=== PATIENT | female | born 1940 | race Caucasian/White ===

== ENCOUNTER 2016-04-19 17:06 | Observation (INO) | payer MEDICARE ==
[2016-04-19] MEDS ORDERED: Lidocaine 2.5%/Prilocain 2.5%* 5 GM TUBE TOPICAL PRN (17:35)
[2016-04-19] MEDS ORDERED: Albuterol HFA INHALER* 8 gm MDI INH PRN (17:36)
[2016-04-19] MEDS ORDERED: Acetaminophen TAB* 325 MG PO PRN (17:36)
[2016-04-19] MEDS ORDERED: HYDROmorphone INJ* 1 MG/ML CARPUJECT SYRINGE IV PRN (17:38)
[2016-04-19] MEDS ORDERED: Ondansetron INJ* 2 MG/ML VIAL IV PRN (17:39)
[2016-04-19] MEDS ORDERED: LORazepam INJ* 2 MG/ML 1 ML VIAL IV PUSH PRN (17:39)
[2016-04-19] MEDS: NS 0.9% 1000 ML* 1,000 ML IV SCH (17:43)
[2016-04-19] MEDS ORDERED: Magnesium Sulf 4 GM/100 ML IV* 4,000 MG/100 ML BAG IVPB ONE (18:00)
[2016-04-19] MEDS: Mometasone/Formoter 200/5 MDI INH SCH (20:00)
[2016-04-19] MEDS: Dexamethasone IV* 4 MG/ML 1 ML (4 MG) IV SLOW PU SCH (22:02)
[2016-04-20] MEDS: NS 0.9% 1000 ML* 1,000 ML IV SCH (03:54)
[2016-04-20] MEDS: Dexamethasone IV* 4 MG/ML 1 ML (4 MG) IV SLOW PU SCH ×2 (04:08→10:01)
[2016-04-20 05:28] LABS: Hematocrit 32 % (35-47); Hemoglobin 10.7 g/dl (12.0-16.0); Mean Corpuscular HGB Conc 34 g/dl (31-36); Mean Corpuscular Hemoglobin 35 pg (27-31); Mean Corpuscular Volume 103 fL (80-97); Mean Platelet Volume 6 um3 (7.4-10.4); Red Blood Count 3.07 10^6/ul (4.0-5.4); Red Cell Distribution Width 13 % (10.5-15); White Blood Count 5.5 10^3/ul (3.5-10.8)
[2016-04-20 05:44] LABS: BUN/Creatinine Ratio 17.4 (8-20); Calcium 8.9 mg/dL (8.6-10.3); EGFR African American 82.5 (>60); EGFR Non-African American 64.2 (>60); Magnesium 2.5 mg/dL (1.9-2.7); Potassium 4.4 mmol/L (3.5-5.0)
[2016-04-20] MEDS ORDERED: Omeprazole CAP* 20 MG PO SCH (09:00)
[2016-04-20] MEDS: Mometasone/Formoter 200/5 MDI INH SCH (09:05)
--- NOTE | 2016-04-20 11:09 | PN ---
Progress Note - Progress Note SOAP: DISCHARGE NOTE, 24 HR OBV Subjective: []Much better after steroids. BENNETT gone and nausea gone. Walking better but still not very steady. Had presented with 2 weeks BENNETT, nausea, ataxia. Acetaminophen (Tylenol Tab*) 650 mg PO Q6H PRN PRN Reason: PAIN OR TEMPERATURE Albuterol (Ventolin Hfa Inhaler*) 2 puff INH Q6H PRN PRN Reason: WHEEZING Dexamethasone Sodium Phosphate (Decadron Iv*) 4 mg IV SLOW PU Q6H [facility] Last Admin: 04/20/16 10:01 Dose: 4 mg Hydromorphone HCl (Dilaudid Iv*) 0.5 mg IV Q6H PRN PRN Reason: PAIN Last Admin: 04/19/16 20:12 Dose: 0.5 mg Sodium Chloride (Ns 0.9% 1000 Ml*) 1,000 mls @ 100 mls/hr IV PER RATE [facility] Last Admin: 04/20/16 03:54 Dose: 100 mls/hr Lidocaine/Prilocaine (Emla 5 Gm*) 1 applic TOPICAL .SEE DIRECTIONS PRN PRN Reason: PORT ACCESS Lorazepam (Ativan Inj*) 0.5 mg IV PUSH Q6H PRN PRN Reason: NAUSEA/VOMITING Mometasone Furoate/Formoterol Fumar (Dulera 200/5 Mdi*) 2 puff INH BID [facility] Last Admin: 04/20/16 09:05 Dose: 2 puff Omeprazole (Prilosec Cap*) 20 mg PO DAILY [facility] Last Admin: 04/20/16 08:05 Dose: 20 mg Ondansetron HCl (Zofran Inj*) 4 mg IV Q6H PRN PRN Reason: NAUSEA/VOMITING Last Admin: 04/19/16 20:21 Dose: 4 mg Acetaminophen TAB* [Tylenol TAB*] 650 mg PO Q6H PRN 04/19/16 [History Confirmed 04/19/16] Albuterol HFA INHALER* [Ventolin HFA Inhaler*] 2 puff INH Q6H PRN 04/19/16 [ History Confirmed 04/19/16] Budesonide/Formote 160/4.5(NF) [Symbicort 160/4.5 (NF)] 2 puff INH DAILY [History Confirmed 04/19/16] Lidocaine 2.5%/Prilocain 2.5%* [Emla 5 GM*] 1 applic TOPICAL .SEE DIRECTIONS PRN 04/19/16 [History Confirmed 04/19/16] Objective: [] Vital Signs Temp Pulse Resp BP Pulse Ox 98.2 F 78 14 150/55 100 04/20/16 07:40 04/20/16 09:06 04/20/16 09:06 04/20/16 07:40 04/20/16 09:06 HEENT - Mucosa moist, lost teeth, no thrush. CTA RRR S1S2 ABD NT ND +BS NO HSM EXT no c/c/e Neuro - AAOx3, normal strength and rapid movement. Gait unstable, ataxia one assist. 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 Discussed that this is a risk after local therapy for AUDIO/VISUAL OPERATOR disease. Options include WBR, she may be a candidate for repeat focal therapy. Discussed pros and cons of both. She feels better today an can go home. Plan: []1. D/C on 8 mg po Dex bid 2. Will present at tumor board, follow up on Monday 3. Continue inhalers.
--- NOTE | 2016-04-20 11:42 | DS ---
DISCHARGE SUMMARY: DATE OF ADMISSION: 04/19/16 at 5 p.m. DATE OF DISCHARGE: 04/20/16 at 11 a.m. ADDENDUM: Please see history and physical for details of presentation. She was here less than 24 hours. She received IV fluids and steroids. Her headache , nausea, and gait have improved dramatically. She will now be discharged to home on oral dexamethasone. She will have a PT evaluation before going home for a walker. Follow up in clinic in 2 days. [id number]/[facility] #: [id number] [place]
[2016-04-20 13:28] VITALS: BP 125/49
== END 2016-04-20 14:20 | disposition home or self-care (01) ==
LOC: MED 17:24
PROVIDERS: ADMIT Internal Medicine Hematology & Oncology; ATTEND Internal Medicine Hematology & Oncology
DX: C34.91 Malignant neoplasm of unspecified part of right bronchus or lung (principal); C79.31 Secondary malignant neoplasm of brain; R51 Headache; R11.2 Nausea with vomiting, unspecified; G62.0 Drug-induced polyneuropathy; J44.9 Chronic obstructive pulmonary disease, unspecified; E78.5 Hyperlipidemia, unspecified; I10 Essential (primary) hypertension; Z88.1 Allergy status to other antibiotic agents; Z88.8 Allergy status to other drugs, medicaments and biological substances; Z79.899 Other long term (current) drug therapy; G91.9 Hydrocephalus, unspecified
CPT/HCPCS: 36415; 36591; 70470; 80048; 80053; 83735; 85025; 85027; 94640; 94760; 96361; 96365; 96366; 96372; 96375; 99215; 99217; 99219; 99225; A9270-GY; G0378; G0463; G8978-GP-CK; G8979-GP-CI; G8980-GP-CK; J1100; J1170; J1642; J2405; J3475; Q9967

== ENCOUNTER 2016-04-26 07:15 | Inpatient (IN) | payer MEDICARE ==
--- NOTE | 2016-04-25 13:22 | HP ---
HISTORY AND PHYSICAL: DATE OF ADMISSION: 04/26/16 CHIEF COMPLAINT: Recurrent cerebellar metastatic tumor. HISTORY OF PRESENT ILLNESS: This 76-year-old lady was initially diagnosed with lung cancer approximately 1 year prior to admission. She had undergone a posterior fossa craniectomy for removal of a mass, which turned out to be a nonsmall cell lung cancer back on 04/07/15. Postoperatively, she did quite well and has been followed by Dr. Tha Kang and postoperatively received radiotherapy as well as chemotherapy. Her underlying primary disease has been stable and she presented several weeks ago with recurrent ataxia as well as headaches. She has a history of a prior aneurysm clipping and so her radiographic evaluation was a CT scan with and without contrast, which suggested enhancing tissue adjacent to her former tumor bed in the right cerebellum. The differential diagnosis at this time is that of either radiation necrosis or possibly recurrent tumor. The patient was placed on steroids and symptomatically is somewhat better. She does have some difficulty ambulating and uses a walker for assistance. She also is using home oxygen for supplementation given her history of both lung cancer and chronic obstructive pulmonary disease. She denies any nausea or vomiting and has no previous history of seizures or other neurological complaints at this time. PAST MEDICAL HISTORY: Significant for: 1. Nonsmall cell lung cancer. 2. Coronary artery disease. 3. Chronic obstructive pulmonary disease. 4. Hypertension. 5. Hyperlipidemia. 6. Cerebral aneurysm with history of clipping on the left. 7. History of melanoma. PAST SURGICAL HISTORY: Includes posterior fossa craniectomy on the right, hysterectomy, and a prior left craniotomy for aneurysm clipping. MEDICATIONS: At the time of admission includes: 1. Symbicort 2 puffs every morning. 2. Albuterol inhaler 2 puffs every 4 hours as needed. 3. Decadron 4 mg p.o. q.6 hours. ALLERGIES: She is allergic to CIPRO, FLEXERIL, DEMEROL, and BENZONATATE. FAMILY HISTORY: Family history was taken and did not contribute to this illness. SOCIAL HISTORY: Reveals that she lives at home with a supportive family. She has a long smoking 50-pack year history, stopping around 9 years ago. REVIEW OF SYSTEMS: A complete 14-system review was done with the only significance being respiratory review consistent with her history of chronic obstructive pulmonary disease and lung cancer. The remainder of her system review was done and did not contribute to this illness. PHYSICAL EXAMINATION VITAL SIGNS: She was noted to have a blood pressure of 172/80 with a pulse of 72 and respirations of 16. HEENT: Head: She was noted to have alopecia with craniotomy defects on the left side as well as the right posterior fossa. Eyes revealed a full range of extraocular movements. Pupils are equal and reactive to light. NECK: Supple. LUNGS: Clear to auscultation. Lungs revealed distal breath sounds. CARDIOVASCULAR: Exam revealed regular rate and rhythm. ABDOMEN: Soft with normal bowel sounds, no tenderness. EXTREMITIES: Revealed full range of passive motion. NEUROLOGIC: Revealed her to be awake, alert, and oriented. Motor examination revealed 5/5 strength in all extremities. Sensory exam was intact to pinprick and light touch. Cerebellar examination revealed fairly good [id number] movements bilaterally. Her gait was somewhat unsteady. Cranial nerves II through XII were intact. IMAGING: A CT scan shows enhancing tissue in the right cerebellar hemisphere consistent with either radiation necrosis or recurrent tumor. IMPRESSION: Probable recurrent metastatic tumor. PLAN: She is being admitted at this time for elective craniotomy. [id number]/[facility] #: [id number] MTDD
[~2016-04-26 07:15] MED LIST: Buffered Lidocaine 1% SYR 3ML* 3 ML/SYR SYRINGE INTRADERM ONE; Famotidine IV* 10 MG/ML 2 ML (20 mg) IV ONE; Levalbuterol 0.63MG/3ML NEB INH ONE; Metoclopramide TAB* 10 MG PO ONE
[2016-04-26] MEDS ORDERED: Metoclopramide TAB* 10 MG ONE (07:40)
[2016-04-26] MEDS ORDERED: Famotidine IV* 10 MG/ML 2 ML (20 mg) ONE (07:41)
[2016-04-26] MEDS ORDERED: ceFAZolin 2 GM PREMIX (*) 2 GM/50 ML BAG IVPB ONE (07:41)
[2016-04-26] MEDS ORDERED: Buffered Lidocaine 1% SYR 3ML* 3 ML/SYR SYRINGE ONE (07:41)
[2016-04-26] MEDS ORDERED: Levalbuterol 1.25MG/0.5ML NEB ONE (07:41)
[2016-04-26] MEDS ORDERED: Sodium Chloride * 10 ML ONE (08:38)
[2016-04-26] MEDS ORDERED: EPHEDrine (Pressors)* 50 MG/ML VIAL ONE (08:38)
[2016-04-26] MEDS ORDERED: fentaNYL* 50 MCG/ML 2 ML VIAL (100 MCG VIAL) ONE ×2 (08:38→13:12)
[2016-04-26] MEDS ORDERED: Propofol* 500 MG/50 ML BTL ONE ×2 (08:38→12:36)
[2016-04-26] MEDS ORDERED: Rocuronium* 10 MG/ML VIAL ONE (08:38)
[2016-04-26] MEDS ORDERED: Dexamethasone IV* 4 MG/ML 1 ML (4 MG) ONE (08:38)
[2016-04-26] MEDS ORDERED: Midazolam* 1 MG/ML 5 ML VIAL (5 MG) ONE (08:38)
[2016-04-26] MEDS ORDERED: Remifentanil* 2 MG VIAL ONE ×2 (08:38→12:36)
[2016-04-26] MEDS ORDERED: Propofol* 10 MG/ML 20 ML BTL IV PUSH ONE (08:38)
[2016-04-26] MEDS ORDERED: Lidocaine 2% MPF* 2 ML VIAL ONE (08:38)
[2016-04-26] MEDS ORDERED: Phenylephrine INJ* 10 MG/ML 1 ML VIAL (10 MG) ONE (08:38)
[2016-04-26] MEDS ORDERED: Ondansetron INJ* 2 MG/ML VIAL ONE (08:38)
[2016-04-26] MEDS ORDERED: Lidocain 1% EPI 1:100,000 * 30 ML MDV ONE (09:59)
[2016-04-26] MEDS ORDERED: Thrombin 5,000 UNITS* 1 APPLIC KIT - topical use - TOPICAL ONE (10:00)
[2016-04-26] MEDS ORDERED: Mannitol 25% (12.5 GM) 50 ML* 12.5 GM/50 ML VIAL ONE (10:00)
[2016-04-26 11:28] LABS: PCO2 Arterial 34 mmHg (35-45)
[2016-04-26 12:07] LABS: PCO2 Arterial 28 mmHg (35-45)
[2016-04-26] MEDS ORDERED: Levalbuterol 0.63MG/3ML NEB INH PRN (12:48)
[2016-04-26] MEDS ORDERED: fentaNYL* 50 MCG/ML 2 ML VIAL (100 MCG VIAL) IV PRN (12:48)
[2016-04-26] MEDS ORDERED: Ondansetron INJ* 2 MG/ML VIAL IV PRN ×2 (12:48→13:00)
[2016-04-26] MEDS ORDERED: Acetaminophen IV 1GM/100ML * 100 ML IVPB ONE (12:48)
[2016-04-26] MEDS ORDERED: Magnesium Hydroxide LIQ* 30 ML UDC PO PRN (13:00)
[2016-04-26] MEDS ORDERED: Acetaminophen TAB* 325 MG PO PRN (13:00)
[2016-04-26] MEDS ORDERED: Morphine INJ* 4 MG/ML 1 ML CARPUJECT IV PRN (13:09)
[2016-04-26] MEDS ORDERED: Albuterol HFA INHALER* 8 gm MDI INH PRN (13:10)
[2016-04-26] MEDS ORDERED: Labetalol IV* 5 MG/ML 20 ML VIAL ONE (13:57)
[2016-04-26] MEDS ORDERED: HYDROmorphone INJ* 1 MG/ML CARPUJECT SYRINGE ONE (14:09)
[2016-04-26] MEDS: HYDROmorphone INJ* 1 MG/ML CARPUJECT SYRINGE IV PRN ×5 (14:12→14:55)
[2016-04-26] MEDS ORDERED: Acetaminophen IV 1GM/100ML * 100 ML ONE (14:20)
[2016-04-26] MEDS: Labetalol IV* 5 MG/ML 20 ML VIAL IV PUSH PRN ×2 (14:25→20:04)
[2016-04-26] MEDS ORDERED: Labetalol IV* 5 MG/ML 20 ML VIAL IV PUSH ONE (15:01)
[2016-04-26] MEDS: HYDROcodone/ACETAMIN 5-325 MG* 1 TAB PO PRN ×2 (15:49→22:09)
[2016-04-26] MEDS: Dexamethasone IV* 4 MG in NS 0.9% 50 ML* 50 ML IVPB SCH ×2 (16:04→20:03)
[2016-04-27] MEDS: Dexamethasone IV* 4 MG in NS 0.9% 50 ML* 50 ML IVPB SCH (02:07)
[2016-04-27] MEDS: HYDROcodone/ACETAMIN 5-325 MG* 1 TAB PO PRN ×3 (05:29→21:33)
[2016-04-27 05:52] LABS: Hematocrit 31 % (35-47); Hemoglobin 10.3 g/dl (12.0-16.0); Mean Corpuscular HGB Conc 34 g/dl (31-36); Mean Corpuscular Hemoglobin 35 pg (27-31); Mean Corpuscular Volume 104 fL (80-97); Mean Platelet Volume 7 um3 (7.4-10.4); Red Blood Count 2.96 10^6/ul (4.0-5.4); Red Cell Distribution Width 13 % (10.5-15); White Blood Count 11.1 10^3/ul (3.5-10.8)
[2016-04-27 06:02] LABS: BUN/Creatinine Ratio 24.3 (8-20); Calcium 8.7 mg/dL (8.6-10.3); EGFR Non-African American 52.1 (>60); Potassium 4.6 mmol/L (3.5-5.0)
[2016-04-27 06:06] LABS: Comments Flag Yes
[2016-04-27 06:07] LABS: Add Diff/Slide Review? Slide Review Added
--- NOTE | 2016-04-27 08:01 | RAD ---
HISTORY: Postop COMPARISONS: April 19, 2016 TECHNIQUE: Multiple contiguous axial CT scans were obtained of the head without intravenous contrast. FINDINGS: HEMORRHAGE/INFARCT: There is no hemorrhage or acute infarct. MASSES/SHIFT: There is no mass or shift. EXTRA-AXIAL SPACES: There are no extra-axial fluid collections. SULCI AND VENTRICLES: The sulci and ventricles are normal in size and position for the patient's stated age. CEREBRUM: There is hypoattenuation of the periventricular and subcortical white matter. BRAINSTEM: There are no focal parenchymal abnormalities. CEREBELLUM: There is postsurgical change to the right inferior cerebellum. Evaluation of the enhancing mass noted on the previous examination is compared to by the lack of intravenous contrast. VESSELS: Aneurysm clip is noted in the region of the left ICA PARANASAL SINUSES: The paranasal sinuses are clear. ORBITS: The orbits are unremarkable. BONES AND SOFT TISSUE: There is post surgical change to the skull OTHER: None IMPRESSION: 1. POSTOPERATIVE CHANGES TO THE RIGHT INFERIOR CEREBELLUM. 2. HYPOATTENUATION OF THE PERIVENTRICULAR AND SUBCORTICAL WHITE MATTER WHICH MAY REFLECT CHRONIC ISCHEMIA OR THE SEQUELA OF PREVIOUS RADIATION THERAPY. 3. NO ACUTE INTRACRANIAL PATHOLOGY
--- NOTE | 2016-04-27 08:02 | PN ---
Progress Note - Progress Note SOAP: Subjective: []POD # 1 Awake, alert Complains of slight headache Dressing dry Objective: []Neuro intact Finger to nose movements good on right F/U CT shows 4th ventricle open No evidence of post op issues Assessment: []Satis post op course Plan: [] Will transfer to [facility] Overall doing very well
[2016-04-27] MEDS: Mometasone/Formoter 200/5 MDI INH SCH (09:28)
--- NOTE | 2016-04-27 09:48 | PN ---
Progress Note - Progress Note SOAP: Subjective: []Feels great, better then before surgery. Has some pain at incision, no BENNETT, no nauseas. Eating full breakfast. No neurological defects, has not walked today. Acetaminophen (Tylenol Tab*) 650 mg PO Q4H PRN PRN Reason: PAIN Acetaminophen/Hydrocodone Bitart ([place] 5-325 Tab*) 1 tab PO Q4H PRN PRN Reason: moderate pain Acetaminophen/Hydrocodone Bitart ([place] 5-325 Tab*) 2 tab PO Q4H PRN PRN Reason: Severe Pain Last Admin: 04/27/16 05:29 Dose: 2 tab Albuterol (Ventolin Hfa Inhaler*) 2 puff INH Q6H PRN PRN Reason: WHEEZING Dexamethasone Sodium Phosphate (Decadron Iv*) 2 mg IV SLOW PU Q8HR [facility] Lactated Ringer's (Lactated Ringers 1000 Ml Bag*) 1,000 mls @ 75 mls/hr IV .per rate [facility] Last Admin: 04/27/16 04:36 Dose: 75 mls/hr Labetalol HCl (Trandate Iv*) 20 mg IV PUSH Q3H PRN PRN Reason: BLOOD PRESSURE Last Admin: 04/26/16 20:04 Dose: 20 mg Levalbuterol HCl (Xopenex 0.63mg/3ml Neb*) 0.63 mg INH ONCE PRN PRN Reason: SOB/WHEEZING Stop: 04/27/16 12:49 Magnesium Hydroxide (Milk Of Magnesia Liq*) 30 ml PO DAILY PRN PRN Reason: CONSTIPATION Mometasone Furoate/Formoterol Fumar (Dulera 200/5 Mdi*) 2 puff INH DAILY [facility] PRN Reason: Protocol Last Admin: 04/27/16 09:28 Dose: 2 puff Ondansetron HCl (Zofran Inj*) 4 mg IV Q6H PRN PRN Reason: NAUSEA/VOMITING Objective: [] Vital Signs Temp Pulse Resp BP Pulse Ox 98.2 F 66 16 164/66 99 04/27/16 08:00 04/27/16 08:01 04/27/16 08:01 04/27/16 08:01 04/27/16 08:01 HEENT - Posterior incision is healing. No thrush, CN 2-12 intact CTA RRR s1s2 BS, NT/ND, sitting. EXT w/o edema Neuro - limited exam, strength 4/4 x 4 and near normal finger to nose. did not walk. 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 Tolerated surgery well. Plan: []1. Discussed plan for disease. Likely focal radiation to surgical bed. No systemic therapy planned at this time. Will check PET in early May. Optimal second line treatment will be Nivolumab once Dex is tapered off. 2. Dex at 2 q 8, will discuss with NSG but consider d/c on 2 bid 3. Continue other medication, mild HTN, will follow. 4. Follow in hospital, will see in clinic on next Monday to finalize post operative plans. 5. PT once goes to floor.
[2016-04-27] MEDS: Dexamethasone IV* 4 MG/ML 1 ML (4 MG) IV SLOW PU SCH ×2 (13:44→21:33)
--- NOTE | 2016-04-27 22:57 | OP ---
DATE OF OPERATION: 04/26/16 - ROOM #349 DATE OF : 40 SURGEON: Paolo lAexis MD CASTING MACHINE SERVICE OPERATOR: ISIS Ashby ANESTHESIOLOGIST: David Ziegler MD ANESTHESIA: General. PRE-OP DIAGNOSIS: Recurrent cerebellar metastatic disease. POST-OP DIAGNOSIS: Recurrent cerebellar metastatic disease. OPERATIVE PROCEDURE: Right posterior fossa craniectomy with excision of recurrent right cerebellar metastatic carcinoma. DESCRIPTION OF PROCEDURE: After satisfactory general anesthesia was obtained, the patient was placed on the operating table in the prone position with the chest supported on the chest rolls and the neck maintained in slight neck flexion utilizing Cortez head rest. The occipitocervical area was then clipped, prepped, and draped in a sterile manner for re-operation of a previous right posterior fossa craniectomy. Her midline incision was infiltrated with 1 % Xylocaine with epinephrine after which it was opened down and extended the incision which ran from the inion to the mid cervical spine. This incision was infiltrated with 1% Xylocaine with epinephrine after which it was opened sharply down to the periosteum superiorly and the cervical fascia inferiorly. Utilizing the monopolar cautery this dissection was carried down until the bony edges of the previous craniectomy were exposed. Self-retaining retractors were placed to facilitate exposure. Preoperative x-ray studies had shown an enhancing mass extending laterally from the previous resection cavity. Additional lateral bone was removed utilizing a combination of the drill and Kerrison rongeurs. The dura was then opened in a cruciate manner. There was noted to be some cortical scarring in this region. Utilizing primarily suction and the bipolar forceps, abnormal tissue was encountered adjacent to the floor of the posterior fossa on the right side. A specimen of this tissue was sent for frozen section with the frozen section diagnosis being consistent with metastatic carcinoma. The borders of the mass were quite distinct and the mass was decompressed utilizing the Sonopet ultrasonic aspirator and bipolar forceps. Additional specimens of the mass were taken for permanent pathology. Ultimately, the mass was removed in its entirety and it was noted to be densely adherent to the dura over the posterolateral floor of the posterior fossa. It was felt that a gross total resection of tumor had been achieved. The cerebellum was noted to be quite pulsatile at the time of closure. Small pieces of Surgicel were placed over the denuded cerebellar cortex after which the dura was reapproximated with 4-0 Nurolon to include a new bovine pericardial graft which was placed and secured with multiple 4-0 Nurolon sutures to ensure watertight dura closure. DuraSeal tissue adhesive was then applied as the next layer as well. The fascia was then reapproximated with 2-0 Vicryl suture, the subcutaneous tissue was closed with 3-0 Vicryl suture, and the skin closed with a running locking Prolene suture. The estimated blood loss was less than 50 cc and the final sponge, padding, and needle counts were correct. The patient was taken to the recovery room, extubated and in stable condition. [id number]/[facility] #: [id number] MTDD
[2016-04-28] MEDS: Dexamethasone IV* 4 MG/ML 1 ML (4 MG) IV SLOW PU SCH ×2 (05:58→13:32)
[2016-04-28 08:22] LABS: Add Diff/Slide Review? Slide Review Added; Comments Flag Yes; Hematocrit 32 % (35-47); Hemoglobin 10.8 g/dl (12.0-16.0); Mean Corpuscular HGB Conc 33 g/dl (31-36); Mean Corpuscular Hemoglobin 35 pg (27-31); Mean Corpuscular Volume 104 fL (80-97); Mean Platelet Volume 7 um3 (7.4-10.4); Red Cell Distribution Width 13 % (10.5-15); White Blood Count 11.3 10^3/ul (3.5-10.8)
[2016-04-28 08:52] LABS: Albumin 3.3 g/dL (3.2-5.2); Calcium 8.6 mg/dL (8.6-10.3); EGFR African American 78.3 (>60); EGFR Non-African American 60.9 (>60); Globulin 2.4 g/dL (2-4); Total Bilirubin 0.3 mg/dL (0.2-1.0); Total Protein 5.7 g/dL (6.4-8.9)
[2016-04-28] MEDS: Mometasone/Formoter 200/5 MDI INH SCH (08:53)
[2016-04-28 12:11] VITALS: BP 115/47
[2016-04-28 12:47] LABS: Potassium 4.8 mmol/L (3.5-5.0)
[2016-04-28] MEDS: HYDROcodone/ACETAMIN 5-325 MG* 1 TAB PO PRN (13:39)
--- NOTE | 2016-05-03 23:36 | DS ---
DISCHARGE SUMMARY: DATE OF ADMISSION: 04/26/16 DATE OF DISCHARGE: 04/28/16 DISCHARGE DIAGNOSES: 1. Recurrent cerebellar metastatic tumor. 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 4. Hypertension. 5. Hyperlipidemia. SPECIAL PROCEDURE: Right posterior fossa craniectomy for metastatic tumor resection. HOSPITAL COURSE: This 76-year-old female was seen in office with recurrent ataxia and headaches. She was previously diagnosed with lung cancer approximately 1 year ago. She had undergone posterior fossa craniectomy for removal of a cerebellar mass which turned out to be non-small cell lung cancer metastasis in March 2015. Imaging of the brain suggested recurrent tumor and she was therefore admitted this time for resection of the mass. On the day of admission, she was taken to surgery where under general anesthesia, a right posterior fossa craniectomy for resection of cerebellar metastatic tumor operation was carried out. Postoperatively, she was admitted to the intensive care unit for continued neurological monitoring. She was feeling well. On the first postoperative day, she was transferred to the short stay surgical unit and continued to improve. Pain was well controlled with oral pain medications. She was ambulating independently. She was eating, drinking, and voiding without difficulty. No new symptoms were observed. On the second postoperative day, she was discharged home to the care of her family. Discharge instructions including wound care and activity level were discussed with the patient and provided. She will be seen in office in approximately 2 weeks for followup. DISCHARGE MEDICATIONS: 1. [place] 5/325 two tabs by mouth every 4 hours as needed for pain. 2. Dexamethasone 2 mg 1 tab by mouth 3 times daily. ISIS CALLAWAY [id number]/[facility] #: [id number] [place]
== END 2016-04-28 14:10 | disposition home or self-care (01) | DRG 26 ==
LOC: AA 07:15 → ICU 15:23 → SSU 04-27 10:37
PROVIDERS: ADMIT Neurological Surgery; ATTEND Neurological Surgery
PROC: 00BC0ZZ Excision of Cerebellum, Open Approach (ICD-10-PCS; principal; 2016-04-28)
DX: C79.31 Secondary malignant neoplasm of brain (principal); C34.91 Malignant neoplasm of unspecified part of right bronchus or lung; J44.9 Chronic obstructive pulmonary disease, unspecified; Z88.0 Allergy status to penicillin; Z88.8 Allergy status to other drugs, medicaments and biological substances; Z87.891 Personal history of nicotine dependence; I25.10 Atherosclerotic heart disease of native coronary artery without angina pectoris; I10 Essential (primary) hypertension; E78.5 Hyperlipidemia, unspecified; Z85.820 Personal history of malignant melanoma of skin
CPT/HCPCS: 36415; 70450; 80048; 80053; 82803; 85025; 85027; 86850; 86900; 86901; 88307; 88331; 88341; 88342; 93005; 99232; A9270-GY; C1776; J0690; J1100; J1170; J2150; J2250; J2405; J2704; J3010

== ENCOUNTER 2018-01-21 11:35 | Inpatient (IN) | payer MEDICARE ==
--- NOTE | 2018-01-21 11:50 | ED ---
Shortness of Breath - HPI Summary HPI Summary: The patient is a 77 y/o F presenting to [facility] with a chief complaint of SOB starting a week ago. She has had an intermittent productive cough as well as edema in her legs and hands. She denies CP and abd pain. She has hx of lung cancer, which she treats with immunotherapy, and she also uses Prednisone as a long-term source of relief. - History of Current Complaint Chief Complaint: EDShortnessOfBreath Time Seen by Provider: 01/21/18 11:43 Hx Obtained From: Patient Onset/Duration: Lasting Days - a week, Still Present Current Severity: Moderate Aggrevating Factors: Nothing Alleviating Factors: Nothing Associated Signs & Symptoms: Cough (Productive) - intermittent, Edema - in legs and hands - Allergy/Home Medications Allergies/Adverse Reactions: Allergies Allergy/AdvReac Type Severity Reaction Status Date / Time meperidine [From Demerol] Allergy Intermediate See Comment Verified 01/21/18 14: 10 benzonatate Allergy Unknown Unknown Verified 01/21/18 14:10 Reaction Details ciprofloxacin [From Cipro] Allergy Unknown Unknown Verified 01/21/18 14:10 Reaction Details cyclobenzaprine Allergy Unknown Unknown Verified 01/21/18 14:10 Reaction Details Home Medications: Home Medications Albuterol inh POWDER (NF) [Proair Respiclick] 1 puff INH Q4H PRN 01/21/18 [ History Confirmed 01/21/18] Aspirin [Adult Aspirin Regimen] 81 mg PO DAILY 01/21/18 [History Confirmed 01/21] Furosemide TAB* [Lasix TAB*] 20 mg PO DAILY 01/21/18 [History Confirmed 01/21/18 ] Gabapentin CAP(*) [Neurontin 300 CAP(*)] 300 mg PO BID 01/21/18 [History Confirmed 01/21/18] Glyburid/Metformin 2.5/500(NF) [Glucovance (NF)] 1 tab PO DAILY 01/21/18 [ History Confirmed 01/21/18] Tiotropium CAP.INH* [Spiriva CAP.INH*] 1 cap.inh INH DAILY 01/21/18 [History Confirmed 01/21/18] predniSONE TAB* [Deltasone 10 MG TAB*] 10 mg PO DAILY 01/21/18 [History Confirmed 01/21/18] PMH/Surg Hx/FS Hx/Imm Hx Endocrine/Hematology History: Denies: Hx Anticoagulant Therapy, Hx Bone Marrow Disease, Hx Diabetes, Hx Systemic Lupus Erythematosus, Hx Sickle Cell Disease, Hx Thyroid Disease, Hx Anemia, Hx Unexplained Bleeding Cardiovascular History: Reports: Hx Aneurysm, Hx Coronary Artery Disease, Hx Hypercholesterolemia, Hx Hypertension Denies: Hx Angina, Hx Cardiac Arrest, Hx Cardiomegaly, Hx Congestive Heart Failure, Hx Pacemaker/ICD, Hx Peripheral Vascular Disease, Hx Rheumatic Fever, Hx Valvular Heart Disease, Other Cardiovascular Problems/Disorders Respiratory History: Reports: Hx Chronic Obstructive Pulmonary Disease (COPD), Hx Lung Cancer, Hx Pneumonia, Hx Pulmonary Edema - HX OF ABOUT 1 MONTH AGO 08/27 - HOSPITALIZED, Other Respiratory Problems/Disorders - wears 2L O2 at home Denies: Hx Asthma, Hx Pulmonary Embolism, Hx Sleep Apnea GI History: Reports: Hx Diverticulosis, Other GI Disorders - Bowel resection Denies: Hx Cirrhosis, Hx Crohn's Disease, Hx Gastroesophageal Reflux Disease , Hx Hiatal Hernia, Hx Irritable Bowel, Hx Jaundice, Hx Ulcer History: Reports: Other Problems/Disorders - HX OF KIDNEY INJURY A CHILD Denies: Hx Dialysis, Hx Kidney Infection, Hx Kidney Stones, Hx Renal Disease Musculoskeletal History: Reports: Hx Arthritis, Other Musculoskeletal History - hip pinning, Denies: Hx Rheumatoid Arthritis, Hx Bursitis, Hx Tendonitis Sensory History: Reports: Hx Contacts or Glasses Denies: Hx Cataracts, Hx Glaucoma, Hx Hearing Aid Opthamlomology History: Reports: Hx Contacts or Glasses Denies: Hx Cataracts, Hx Glaucoma Neurological History: Reports: Hx Headaches - HX OF, Hx Migraine, Other Neuro Impairments/Disorders - brain tumor Denies: Hx Nerve Disease, Hx Seizures, Hx Transient Ischemic Attacks (TIA) Psychiatric History: Denies: Hx Anxiety, Hx Depression - Cancer History Cancer Type, Location and Year: lung cancer, brain mets. Melanoma Hx Chemotherapy: Yes Hx Radiation Therapy: Yes - Surgical History Surgery Procedure, Year, and Place: > Brain Tumor Resection on 04/07/2015 at age 74. > Cerebral Aneurysm Clipping in 1981 at age 40. > Lap Sigmoid Colectomy in 2007 at age 66. > Total Hysterectomy in 2003 at age 62. > benign breast biopsy in 1991 at age 50. > brain tumor resection on 04/26/2016 at age 76. > hip fx, right, pinned in 2014 at age 73 Hx Anesthesia Reactions: No Infectious Disease History: No Infectious Disease History: Denies: Hx Clostridium Difficile, Hx Hepatitis, Hx Human Immunodeficiency Virus (HIV), Hx of Known/Suspected MRSA, Hx Shingles, Hx Tuberculosis, Hx Known/ Suspected VRE, Traveled Outside the [place] in Last 30 Days - Family History Known Family History: Negative: Cardiac Disease, Hypertension, Diabetes - Social History Alcohol Use: None Hx Substance Use: No Substance Use Type: Reports: None Hx Tobacco Use: Yes Smoking Status (MU): Former Smoker Type: Cigarettes Amount Used/How Often: 1 PPD Length of Time of Smoking/Using Tobacco: 53 YEARS Have You Smoked in the Last Year: No Review of Systems Negative: Chest Pain Positive: Shortness Of Breath, Cough - productive Negative: Abdominal Pain Positive: Edema - in legs and hands All Other Systems Reviewed And Are Negative: Yes Physical Exam - Summary Physical Exam Summary: Appearance: Well appearing, Skin: warm, dry, reflects adequate perfusion Head/face: normal Eyes: EOMI, ANA LILIA ENT: normal Neck: supple, non-tender Respiratory: bilateral wheezing, poor air entry Cardiovascular: RRR, pulses symmetrical Abdomen: non-tender, soft Bowel: present Musculoskeletal: normal, strength/ROM intact, pedal edema Neuro: normal, sensory motor intact, A&Ox3 Triage Information Reviewed: Yes Vital Signs On Initial Exam: Initial Vitals Temp Pulse Resp BP Pulse Ox 97.1 F 97 21 163/101 95 01/21/18 11:36 01/21/18 11:36 01/21/18 11:36 01/21/18 11:36 01/21/18 11:36 Vital Signs Reviewed: Yes Diagnostics - Vital Signs Vital Signs Temp Pulse Resp BP Pulse Ox 01/21/18 11:36 97.1 F 97 21 163/101 95 - Laboratory Result Diagrams: 01/21/18 13:06 01/21/18 13:06 Lab Statement: Any lab studies that have been ordered have been reviewed, and results considered in the medical decision making process. - Radiology CXR Radiology Interpretation Completed By: Radiologist Summary of Radiographic Findings: Findings most consistent with congestive heart failure less likely pneumonia. ED physician has reviewed this report. - CT Chest/Thorax CTA CT Interpretation Completed By: Radiologist Summary of CT Findings: 1. No evidence for pulmonary embolism. 2. Findings most consistent with congestive heart failure. 3. Right infrahilar and lower lobe masses, unchanged from the recent prior study. ED physician has reviewed this report. - EKG 12:27 Cardiac Rate: NL - 90 BPM EKG Rhythm: Sinus Rhythm Summary of EKG Findings: No acute changes. Re-Evaluation - Re-Evaluation First Eval Re-Evaluation Time: 14:30 Change: Improved Comment: The patient is feeling better. She is going for her CTA, and I will re- check after the CTA. Second Eval Re-Evaluation Time: 16:05 Change: Unchanged Comment: I spoke with the patient concerning CTA results. Third Eval Re-Evaluation Time: 17:00 Change: Unchanged Comment: I spoke with patient about admission; she agrees with this plan. Course/Dx - Course Course Of Treatment: The patient is a 77 y/o F presenting to [facility] with a chief complaint of SOB with an intermittent productive cough and edema in hands and legs starting a week ago. She denies CP and abd pain. She has hx of lung cancer , which is treated with immunotherapy and Prednisone. Upon exam, she has a bilateral wheeze, poor air entry, and pedal edema. In the ED course, the patient is given Duoneb, Solu-Medrol, Visipaque, and Lasix. Blood work obtained. EKG shows no acute changes. CXR reveals consistencies of CHF. Chest/ Thorax CTA shows evidence of CHF. I spoke with Dr. Cordova, hospitalist, who confirmed the patient's admission at [1700]. Patient will be diagnosed with COPD exacerbation, hypoxia, and CA lung. Patient understands the need for admission and agrees with this plan. - Diagnoses Differential Diagnosis/HQI/PQRI: Positive: Bronchitis, CHF, COPD Exacerbation, Pulmonary Embolism Provider Diagnoses: COPD exacerbation, Hypoxia, Cancer of lung, CHF (congestive heart failure) - Physician Notifications Discussed Care of Patient With: Daniela Cordova - hospitalist Time Discussed With Above Provider: 17:00 Instructed by Provider To: Admit As Inpatient - Critical Care Time Critical Care Time: 30-74 min Discharge - Sign-Out/Discharge Documenting (check all that apply): Patient Departure - Patient will be admitted to [facility] by Dr. Cordova. - Discharge Plan Condition: Stable Disposition: ADMITTED TO [facility] Referrals: No Primary Care Phys,NOPCP [Primary Care Provider] - - Billing Disposition and Condition Condition: STABLE Disposition: Admitted to [facility] - Attestation Statements Document Initiated by Ethanibe: Yes Documenting Scribe: Marie Colvin Provider For Whom Donovan is Documenting (Include Credential): Dr. Niranjan David MD Scribe Attestation: Marie Pedersen, scribed for Dr. Niranjan David MD on 01/21/18 at 1727. Scribe Documentation Reviewed: Yes Provider Attestation: The documentation as recorded by the Marie cavazos accurately reflects the service I personally performed and the decisions made by me, Dr. Niranjan David MD
[2018-01-21] MEDS ORDERED: methylPREDNISolone 125 MG* 2 ML VIAL IV ONE (11:54)
[2018-01-21] MEDS ORDERED: Albuterol/Ipratropium NEB.SOL* Albuterol 2.5 MG/Ipratropium 0.5 MG 3 ML INH ONE (11:54)
[2018-01-21 13:17] LABS: ABS Basophils 0 10^3/ul (0-0.2); ABS Eosinophils 0.1 10^3/ul (0-0.6); ABS Lymphocytes 0.7 10^3/ul (1.0-4.8); ABS Monocytes 0.7 10^3/ul (0-0.8); ABS Neutrophils 2.7 10^3/ul (1.5-7.7); ABS Nucleated RBC 0 10^3/ul; Eosinophil % 1.2 % (0-6); Hematocrit 30 % (35-47); Hemoglobin 9.7 g/dl (12.0-16.0); Mean Corpuscular HGB Conc 33 g/dl (31-36); Mean Corpuscular Hemoglobin 34 pg (27-31); Mean Corpuscular Volume 104 fL (80-97); Mean Platelet Volume 6.7 um3 (7.4-10.4); Nucleated Red Blood Cells % 0.3; Platelet Count 103 10^3/ul (150-450); Red Blood Count 2.85 10^6/ul (4.00-5.40); Red Cell Distribution Width 17 % (10.5-15); White Blood Count 4.1 10^3/ul (3.5-10.8)
[2018-01-21 13:29] LABS: INR 0.9 (0.77-1.02)
[2018-01-21 13:37] LABS: EGFR Non-African American 47.7 (>60)
--- NOTE | 2018-01-21 14:17 | RAD ---
INDICATION: Shortness of breath. COMPARISON: Comparison is made with a prior study from September 21, 2015. TECHNIQUE: Dual-energy PA and lateral views of the chest were obtained. FINDINGS: There is a power port central venous catheter on the right side. The catheter tip projects over the region of the superior vena cava. The heart appears mildly enlarged. There is diffuse prominence of the interstitial markings with patchy infiltrates at both lung bases and small bilateral pleural effusions. IMPRESSION: FINDINGS MOST CONSISTENT WITH CONGESTIVE HEART FAILURE LESS LIKELY PNEUMONIA.
[2018-01-21] MEDS ORDERED: Iodixanol* (CONTRAST) 320 MG/ML 100 ML SDV IV ONE (14:35)
[2018-01-21] MEDS ORDERED: Furosemide IV* 10 MG/ML VIAL (40 MG) IV ONE (15:01)
--- NOTE | 2018-01-21 15:13 | RAD ---
INDICATION: Shortness of breath. COMPARISON: Comparison is made with a prior CT of the chest from January 18, 2018. TECHNIQUE: A CT angiogram of the chest was performed with intravenous following intravenous injection of 77 ml of Visipaque 320 nonionic contrast. Contiguous axial sections were obtained from the lung apices through the lung bases. Images were reconstructed in the coronal and sagittal planes. FINDINGS: PULMONARY ARTERIES: There is relatively homogeneous opacification of the pulmonary arteries. No intraluminal filling defect or pulmonary embolism is seen. HEART: The heart is mildly enlarged. No pericardial effusion is present. There are coronary calcifications present. THORACIC AORTA: The descending thoracic aorta is mildly ectatic. There is mild to moderate calcific plaque present. The aorta demonstrates homogeneous contrast opacification. LUNGS: There is mild prominence of the interstitial markings and a small right pleural effusion present. The effusion is slightly increased in size from the prior study. As previously noted there is a masslike area of increased density in the inferior right hilar region measuring 3.7 x 2.5 cm in size which is unchanged from the recent prior study. There is also a nodular density in the posterior medial right lower lobe measuring 2.9 x 2.1 cm which is unchanged significantly from the prior exam consistent with the patient's known tumor. MEDIASTINUM: No significant enlarged mediastinal lymph nodes are seen. ABDOMEN: No acute findings are seen on the images of the upper abdomen. There is fatty infiltration of the liver. There is a small hypodensity in the antral portion of the left hepatic lobe measuring 1 cm in size which is unchanged. There appear to be gallstones present. BONES: There is a mild compression fracture of the superior endplate of the T11 vertebral body which is unchanged. IMPRESSION: 1. NO EVIDENCE FOR PULMONARY EMBOLISM. 2. FINDINGS MOST CONSISTENT WITH CONGESTIVE HEART FAILURE. 3. RIGHT INFRAHILAR AND LOWER LOBE MASSES, UNCHANGED FROM THE RECENT PRIOR STUDY.
[2018-01-21] MEDS ORDERED: Acetaminophen TAB* 325 MG PO PRN (17:24)
[2018-01-21] MEDS ORDERED: Albuterol/Ipratropium NEB.SOL* Albuterol 2.5 MG/Ipratropium 0.5 MG 3 ML INH PRN (17:28)
[2018-01-21] MEDS ORDERED: Dextrose 50% Syringe 50 ML* 25 GM/50 ML SYRINGE IV PUSH PRN (17:29)
[2018-01-21] MEDS ORDERED: Albuterol HFA INHALER* 8 gm MDI INH PRN (17:30)
[2018-01-21] MEDS: Albuterol/Ipratropium NEB.SOL* Albuterol 2.5 MG/Ipratropium 0.5 MG 3 ML INH SCH (20:06)
--- NOTE | 2018-01-21 22:21 | HP ---
CC: Dr. Kang, Dr. Arshad; Dr. Galloway * HISTORY AND PHYSICAL: DATE OF ADMISSION: 01/21/18 PRIMARY CARE PROVIDER: Dr. Kang. CHIEF COMPLAINT: Shortness of breath. 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 The patient also stated that she gained approximately 2 or 3 pounds and her legs are more swollen than usual. She usually takes Lasix for leg edema. She was noted to be more hypoxemic in the emergency department than her baseline requirement of 2 L of oxygen that she usually uses at home. She is going to be admitted with a diagnosis of CHF and COPD exacerbation. PAST MEDICAL HISTORY: 1. History of non-small cell lung cancer with metastasis to brain, status post craniectomy , now on chemotherapy by Dr. Kang and Dr. Arshad. 2. History of coronary artery disease. 3. History of diverticulitis, status post colectomy in 2007. 4. Hypertension. 5. Hyperlipidemia. 6. History of melanoma. 7. History of cerebral aneurysm clipping in 2001. 8. Hysterectomy and bilateral salpingo-oophorectomy in the past. 9. COPD, oxygen dependent 2 L. CURRENT MEDICATIONS: 1. Spiriva 1 inhalation daily. 2. Symbicort 160/4.5 two puffs daily. 3. Albuterol inhaler on a p.r.n. basis. 4. Prednisone 2 mg daily. 5. Glyburide 2.5 mg daily in combination with metformin 500 mg 1 tablet daily. 6. Gabapentin 300 mg b.i.d. 7. Lasix 20 mg daily. 8. Aspirin 81 mg daily. ALLERGIES: Include DEMEROL, BENZONATATE, CIPROFLOXACIN, CYCLOBENZAPRINE. FAMILY HISTORY: Positive for mother from lung cancer. SOCIAL HISTORY: The patient lives alone. She does not drive. She does not use walker for assistance. Her healthcare proxy is her daughter, Alicia Goldsmith. She quit smoking approximately 10 years ago. She has a history of [id number] smoking. She denies any alcohol or illicit drug use. She is a full code. REVIEW OF SYSTEMS: Please see history of present illness. All the remaining 12 systems were reviewed with the patient and were otherwise negative. 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 PHYSICAL EXAMINATION GENERAL: The patient is a pleasant 77-year-old female, who is in no acute distress. Alert, awake, and oriented x3. VITAL SIGNS: Blood pressure of 171/102, heart rate of 101 and regular, respiratory rate 17, oxygen saturation 96% on 2 L of oxygen nasal cannula, temperature of 97.1. HEENT: Head atraumatic, normocephalic. Eyes: Pupils are equal and reactive to light and accommodation. Oropharynx is clear. Mucosa moist. NECK: Supple. No JVD. No bruit bilaterally. RESPIRATORY: Very distant breath sounds bilaterally with prolonged expiratory phase with scant wheezes at bilateral upper lung lobes. CARDIOVASCULAR: Regular rhythm, tachycardia. No murmur. ABDOMEN: Soft, nontender. Bowel sounds are present in all 4 quadrants. EXTREMITIES: There is +1 pitting pedal edema bilaterally. Pulses +2 bilaterally. There is no clubbing and no cyanosis. NEURO EVALUATION: Speech clear. Cranial nerves II through XII grossly intact. Motor strength is 5/5 bilaterally. SKIN: The patient has hypertrophic lesions on her cheeks, nose and forehead likely related to a rosacea. The skin is hypertrophic and granular in appearance. There is no erythema present. DIAGNOSTIC STUDIES/LAB DATA: White blood cell count of 4.1, hemoglobin of 9.7 , hematocrit of 13, MCV of 104, platelets of 103. ABG shows pH of 7.38, pCO2 of 70, pO2 of 74 and bicarb of 35.7. Sodium was 144, potassium 3.8, chloride 106, carbon dioxide 42, BUN 16, creatinine 1.11. Liver function tests unremarkable. Glucose of 183, brain natriuretic peptide was 53. CT angiogram of the chest. Impression: "No evidence of pulmonary embolism. Finding was consistent with congestive heart failure. Right infrahilar and lower lobe masses unchanged from the recent prior study." The patient's EKG showed normal sinus rhythm with heart rate of 90 beats per minute with right axis deviation. ASSESSMENT AND PLAN: 1. A 77-year-old female with history of non-small cell lung cancer presents with shortness of breath. The patient is currently on prednisone and oxygen due to her chronic obstructive pulmonary disease. At this point, it appears to be that her acute hypoxic respiratory failure is due to chronic obstructive pulmonary disease exacerbation and congestive heart failure. At this point, the patient is going to be treated with Solu-Medrol IV for chronic obstructive pulmonary disease exacerbation and scheduled DuoNebs. Her outpatient scheduled nebs are going to be held. She also is going to be treated for congestive heart failure with Lasix. Due to this that patient received 40 mg of Lasix intravenously today, I increased her p.o. dose of Lasix from 20 to 40 mg daily. I will ask for the nurses to obtain daily weight as well as taking measurements. Transthoracic echocardiogram was going to be obtained. 2. In regards to the patient's hypertension, we will start the patient on Norvasc and continue to monitor blood pressure. 3. For the patient's diabetes, her oral hypoglycemics are going to be held. The patient is going to be placed on insulin sliding scale and diabetic diet. 4. For DVT prophylaxis, the patient is high risk. He is going to be placed on heparin subcutaneously. 5. The patient's anemia and thrombocytopenia are new comparing with prior blood counts, may be related to hemodilution. We will continue monitoring it after diuresis. 6. The patient's code status is full and her surrogate decision maker is her daughter. TIME SPENT: Approximately 55 minutes were spent on this patient's admission, more than half that time was spent [id number] with the patient during the interview and physical exam. [id number]/[facility] #: [id number] [place]
[2018-01-21] MEDS: Gabapentin CAP(*) 300 MG PO SCH (23:38)
[2018-01-21] MEDS: methylPREDNISolone SOD 40 MG* 1 ML VIAL IV SCH (23:38)
[2018-01-21] MEDS: Heparin VIAL(*) 5000 UNITS/ML VIAL (FIVE THOUSAND) SUBCUT SCH (23:39)
[2018-01-21] MEDS: Insulin LISPRO* 1 UNITS UNIT SUBCUT SCH (23:40)
[2018-01-21] MEDS: amLODIPine TAB* 5 MG PO SCH (23:42)
[2018-01-22] MEDS: Albuterol/Ipratropium NEB.SOL* Albuterol 2.5 MG/Ipratropium 0.5 MG 3 ML INH SCH ×4 (00:59→19:47)
[2018-01-22] MEDS: methylPREDNISolone SOD 40 MG* 1 ML VIAL IV SCH ×3 (04:03→21:16)
[2018-01-22] MEDS: Heparin VIAL(*) 5000 UNITS/ML VIAL (FIVE THOUSAND) SUBCUT SCH ×3 (06:36→21:16)
[2018-01-22 07:10] LABS: ABS Basophils 0 10^3/ul (0-0.2); ABS Eosinophils 0 10^3/ul (0-0.6); ABS Lymphocytes 0.1 10^3/ul (1.0-4.8); ABS Monocytes 0.1 10^3/ul (0-0.8); ABS Neutrophils 5.5 10^3/ul (1.5-7.7); ABS Nucleated RBC 0 10^3/ul; Eosinophil % 0 % (0-6); Hematocrit 28 % (35-47); Hemoglobin 9.3 g/dl (12.0-16.0); Lymphocyte % 2.5 % (25-47); Mean Corpuscular HGB Conc 34 g/dl (31-36); Mean Corpuscular Hemoglobin 35 pg (27-31); Mean Corpuscular Volume 104 fL (80-97); Mean Platelet Volume 7.5 um3 (7.4-10.4); Nucleated Red Blood Cells % 0.5; Platelet Count 130 10^3/ul (150-450); Red Blood Count 2.66 10^6/ul (4.00-5.40); Red Cell Distribution Width 17 % (10.5-15); White Blood Count 5.8 10^3/ul (3.5-10.8)
[2018-01-22 07:32] LABS: EGFR Non-African American 43.6 (>60)
[2018-01-22] MEDS: Gabapentin CAP(*) 300 MG PO SCH ×2 (08:47→21:14)
[2018-01-22] MEDS: Aspirin EC TAB* 81 MG TAB.EC PO SCH (08:48)
[2018-01-22] MEDS: Insulin LISPRO* 1 UNITS UNIT SUBCUT SCH ×4 (08:48→21:16)
[2018-01-22] MEDS: Furosemide TAB* 40 MG PO SCH (08:48)
[2018-01-22] MEDS: amLODIPine TAB* 5 MG PO SCH (08:48)
--- NOTE | 2018-01-22 10:08 | PN ---
Progress Note - Progress Note Date of Service: 01/22/18 SOAP: Subjective: []Presented to ED yesterday with progressive SOB. Feels OK at rest however minimal exertion (such as amb. to bathroom) causes significant SOB. Admits she forgets to "breath in my nose and blow out the candle" when walking. Denies chest pain and pressure. Medications: Acetaminophen (Tylenol Tab*) 650 mg PO Q4H PRN PRN Reason: FEVER/PAIN Albuterol (Ventolin Hfa Inhaler*) 1 puff INH Q4H PRN PRN Reason: SOB/WHEEZING Albuterol/Ipratropium (Duoneb (Albuterol 2.5 Mg/Ipratropium 0.5 Mg)) 1 neb INH [id number] Last Admin: 01/22/18 06:59 Dose: 1 neb Albuterol/Ipratropium (Duoneb (Albuterol 2.5 Mg/Ipratropium 0.5 Mg)) 1 neb INH Q2H PRN PRN Reason: SOB/WHEEZING Amlodipine Besylate (Norvasc Tab*) 5 mg PO DAILY [facility] Last Admin: 01/22/18 08:48 Dose: 5 mg Aspirin (Aspirin Ec Tab*) 81 mg PO DAILY [facility] Last Admin: 01/22/18 08:48 Dose: 81 mg Dextrose (D50w Syringe 50 Ml*) 12.5 gm IV PUSH .FOR FS < 60 - SS PRN PRN Reason: FS < 60 Furosemide (Lasix Tab*) 40 mg PO DAILY [facility] Last Admin: 01/22/18 08:48 Dose: 40 mg Gabapentin (Neurontin Cap(*)) 300 mg PO BID [facility] Last Admin: 01/22/18 08:47 Dose: 300 mg Heparin Sodium (Porcine) (Heparin Vial(*)) 5,000 units SUBCUT Q8HR [facility] Last Admin: 01/22/18 06:36 Dose: 5,000 units Insulin Human Lispro (Humalog*) 0 units SUBCUT ACHS [facility]; Protocol Last Admin: 01/22/18 08:48 Dose: 4 units Methylprednisolone Sodium Succinate (Solu-Medrol 40 Mg) 40 mg IV Q8H [facility] Last Admin: 01/22/18 04:03 Dose: 40 mg Objective: [] Vital Signs Temp Pulse Resp BP Pulse Ox 98.5 F 88 18 119/72 95 01/22/18 03:06 01/22/18 07:02 01/22/18 08:47 01/22/18 03:06 01/22/18 07:02 A&Ox3, easily forgetful but neuro otherwise grossly non-focal HRR, II/ systolic murmur heard best of sternal border LS dim. throughout without wheeze or rhonchi +BS, abd. soft and non-tender +PP=bilat., trace edema right foot Laboratory Results - last 24 hr 01/21/18 01/21/18 01/21/18 12:10 13:06 13:06 WBC 4.1 RBC 2.85 L Hgb 9.7 L Hct 30 L MCV 104 H MCH 34 H MCHC 33 RDW 17 H Plt Count 103 L MPV 6.7 L Neut % (Auto) 65.4 Lymph % (Auto) 17.0 L [place] % (Auto) 16.3 H Eos % (Auto) 1.2 Baso % (Auto) 0.1 Absolute Neuts (auto) 2.7 Absolute Lymphs (auto) 0.7 L Absolute Monos (auto) 0.7 Absolute Eos (auto) 0.1 Absolute Basos (auto) 0 Absolute Nucleated RBC 0 Nucleated RBC % 0.3 INR (Anticoag Therapy) 0.90 APTT 44.1 H D-Dimer, Quantitative 266 H ABG pH 7.38 ABG pCO2 70 H ABG pO2 74 L ABG HCO3 35.7 H ABG O2 Saturation 95.9 ABG Base Excess 13.9 H Sodium Potassium Chloride Carbon Dioxide Anion Gap BUN Creatinine Est GFR ( Amer) Est GFR (Non-Af Amer) BUN/Creatinine Ratio Glucose POC Glucose (mg/dL) Lactic Acid Calcium Total Bilirubin AST ALT Alkaline Phosphatase Troponin I B-Natriuretic Peptide Total Protein Albumin Globulin Albumin/Globulin Ratio 01/21/18 01/21/18 01/21/18 13:06 13:06 13:06 WBC RBC Hgb Hct MCV MCH MCHC RDW Plt Count MPV Neut % (Auto) Lymph % (Auto) [place] % (Auto) Eos % (Auto) Baso % (Auto) Absolute Neuts (auto) Absolute Lymphs (auto) Absolute Monos (auto) Absolute Eos (auto) Absolute Basos (auto) Absolute Nucleated RBC Nucleated RBC % INR (Anticoag Therapy) APTT D-Dimer, Quantitative ABG pH ABG pCO2 ABG pO2 ABG HCO3 ABG O2 Saturation ABG Base Excess Sodium 144 Potassium 3.8 Chloride 100 L Carbon Dioxide 42 H* Anion Gap 2 BUN 16 Creatinine 1.11 H Est GFR ( Amer) 57.7 Est GFR (Non-Af Amer) 47.7 BUN/Creatinine Ratio 14.4 Glucose 183 H POC Glucose (mg/dL) Lactic Acid 0.7 Calcium 8.7 Total Bilirubin 0.40 AST 28 ALT 33 Alkaline Phosphatase 80 Troponin I 0.02 B-Natriuretic Peptide 53 Total Protein 5.4 L Albumin 3.3 Globulin 2.1 Albumin/Globulin Ratio 1.6 01/21/18 01/22/18 01/22/18 23:29 06:40 06:40 WBC 5.8 RBC 2.66 L Hgb 9.3 L Hct 28 L MCV 104 H MCH 35 H MCHC 34 RDW 17 H Plt Count 130 L MPV 7.5 Neut % (Auto) 95.3 H Lymph % (Auto) 2.5 L [place] % (Auto) 2.1 Eos % (Auto) 0 Baso % (Auto) 0.1 Absolute Neuts (auto) 5.5 Absolute Lymphs (auto) 0.1 L Absolute Monos (auto) 0.1 Absolute Eos (auto) 0 Absolute Basos (auto) 0 Absolute Nucleated RBC 0 Nucleated RBC % 0.5 INR (Anticoag Therapy) APTT D-Dimer, Quantitative ABG pH ABG pCO2 ABG pO2 ABG HCO3 ABG O2 Saturation ABG Base Excess Sodium 142 Potassium 4.0 Chloride 95 L Carbon Dioxide 40 H Anion Gap 7 BUN 20 Creatinine 1.20 H Est GFR ( Amer) 52.7 Est GFR (Non-Af Amer) 43.6 BUN/Creatinine Ratio 16.7 Glucose 224 H POC Glucose (mg/dL) 321 H Lactic Acid Calcium 8.4 L Total Bilirubin AST ALT Alkaline Phosphatase Troponin I B-Natriuretic Peptide Total Protein Albumin Globulin Albumin/Globulin Ratio Assessment: []77 yo f with metastatic lung cancer on Gemcitabine (every other week), c/p [id number] 01/09, admitted with COPD exacerbation. Plan: []1. COPD: cont. current plan of care - cont. steroids and nebs - question of SOB 2/2 Gemcitabine, though difficult to determine at this time 2. Marked murmur: echo mild aortic stenosis, no over CHF 3. Fluid retention: cont. lasix, likely 2/2 gemcitabine 4. Weakness: recommend PT eval. Dispo: suggest VNS on d/c, home likely in next couple days
--- NOTE | 2018-01-22 10:15 | ECHO ---
Patient: [facility] Rec#: [id number] : 1940 Date: 01/22/2018 Age: 77y Height: 163 cm / 64.2 in Weight: 80.29 kg / 177.0 lbs Sex: F BSA: 1.86 Room#: 335 Admit Date#: 01/21/2018 Type: Inpatient Referring: Daniela Cordova MD Reading: Morgan Breen MD Printing Table Worker: [facility] Tran[facility]horacic Echocardiogram Indication: Congestive heart failure BP: 119/72 HR: 92 Rhythm: NSR with PVCs Findings History: Lung cancer with metatstasis to brain, chemotherapy, CAD, HTN, HLD, melanoma, COPD, former smoker. Technical Comments: The study quality is fair. Completed at 0835. Left Ventricle: The left ventricular chamber size is normal. Mild concentric left ventricular hypertrophy is observed. Global left ventricular wall motion and contractility are within normal limits. There is normal left ventricular systolic function. The estimated ejection fraction is 60-65%. Abnormal left ventricular diastolic function is observed. Abnormal left ventricular diastolic filling is observed, consistent with impaired relaxation. Left Atrium: The left atrium is mildly dilated. Right Ventricle: Moderator Band present. The right ventricular cavity size is normal. The right ventricle wall thickness is mildly increased. The right ventricular global systolic function is normal. Right Atrium: The right atrium is mildly dilated. Aortic Valve: The aortic valve structure is not well visualized. Mild aortic leaflet calcification is visualized. Systolic excursion of the aortic valve cusps is reduced. There is a trace of aortic regurgitation. There is mild aortic stenosis. The mean gradient of the aortic valve is 11 mmHg. The peak instantaneous gradient of the aortic valve is 28 mmHg. The aortic valve area, by peak velocities, is calculated at 1.6 cm2. The aortic valve area, by VTI's, is calculated at 1.6 cm2. Mitral Valve: There is mitral annular calcification. The mitral valve leaflets are mildly thickened. There is a trace of mitral regurgitation. There is no evidence of mitral stenosis. Tricuspid Valve: The tricuspid valve leaflets are mildly thickened. There is trace tricuspid regurgitation. Unable to estimate the right ventricular systolic pressure. There is no tricuspid stenosis. Pulmonic Valve: The pulmonic valve structure is not well visualized. There is a trace pulmonic regurgitation. There is no pulmonic stenosis. Pericardium: There is no significant pericardial effusion. A pericardial fat pad is visualized. Aorta: There is no dilatation of the ascending aorta. The aortic arch is not well visualized. The aortic root is normal in size. Pulmonary Artery: The main pulmonary artery is not well visualized. Venous: The inferior vena cava appears normal in size. There is an approximate 50% respiratory change in the inferior vena cava dimension. Summary: There are no significant changes when compared to the previous study done on 10/14/15 Conclusions Global left ventricular wall motion and contractility are within normal limits. The estimated ejection fraction is 60-65%. Abnormal left ventricular diastolic function is observed. The right ventricular global systolic function is normal. Mild aortic leaflet calcification is visualized. There is a trace of aortic regurgitation. There is mild aortic stenosis. The mean gradient of the aortic valve is 11 mmHg. There is a trace of mitral regurgitation. There is trace tricuspid regurgitation. Unable to estimate the right ventricular systolic pressure. There is no dilatation of the ascending aorta. Measurements Name Value Normal Range RVIDd (AP) 2D 2.6 cm (0.9 - 2.6) RVDdMajor (2D) 2.6 cm (2.2 - 4.4) RVAW (2D) 0.7 cm (0.2 - 0.5) RAd ISD 4CH 5.1 cm (3.4 - 4.9) RA (A4C)W 3.1 cm (2.9 - 4.6) IVSd (2D) 1.1 cm (0.6 - 1) LVPWd (2D) 1.2 cm (0.6 - 1) LVIDd (2D) 3.8 cm (3.6 - 5.4) LVIDs (2D) 2.7 cm - LV FS (2D) 30 % (25 - 45) Aortic Annulus 1.9 cm (1.4 - 2.6) Ao root diameter (2D) 3.2 cm (2.1 - 3.5) Ascending Ao 3 cm (2.1 - 3.4) LA dimension (AP) 2D 3.2 cm (2.3 - 3.8) LAd ISD 4CH 5.8 cm (2.9 - 5.3) LA ISD 4CH W 3.4 cm (2.5 - 4.5) Name Value Normal Range LA ESV BP (A/L) index 28 ml/m2 - Name Value Normal Range MV E-wave Vmax 1.1 m/sec - MV deceleration time 327 msec - MV A-wave Vmax 1.5 m/sec - MV E:A ratio 0.7 ratio - LV septal e' Vmax 0.08 m/sec - LV lateral e' Vmax 0.07 m/sec - LV E:e' septal ratio 13.75 ratio - LV E:e' lateral ratio 15.71 ratio - Name Value Normal Range AV Vmax 2.6 m/sec - AV VTI 56.3 cm - AV peak gradient 28 mmHg - AV mean gradient 11 mmHg - LVOT diameter 2 cm - LVOT Vmax 1.3 m/sec - LVOT VTI 29.5 cm - LVOT peak gradient 7 mmHg - LVOT mean gradient 5 mmHg - DOI (VTI) 0.5 ratio - LIZZY (continuity Vmax) 1.6 cm2 - LIZZY (continuity VTI) 1.6 cm2 - JOCELYNN Vmax 0.7 m/sec - Name Value Normal Range IVC diameter 2.1 cm - Name Value Normal Range PV Vmax 1.1 m/sec - PV peak gradient 5 mmHg -
[2018-01-23] MEDS: Albuterol/Ipratropium NEB.SOL* Albuterol 2.5 MG/Ipratropium 0.5 MG 3 ML INH SCH ×2 (00:54→07:26)
[2018-01-23] MEDS: methylPREDNISolone SOD 40 MG* 1 ML VIAL IV SCH ×2 (03:39→11:55)
[2018-01-23] MEDS: Heparin VIAL(*) 5000 UNITS/ML VIAL (FIVE THOUSAND) SUBCUT SCH ×3 (06:10→21:34)
[2018-01-23 06:36] LABS: ABS Basophils 0 10^3/ul (0-0.2); ABS Eosinophils 0 10^3/ul (0-0.6); ABS Lymphocytes 0.2 10^3/ul (1.0-4.8); ABS Monocytes 0.4 10^3/ul (0-0.8); ABS Neutrophils 8.9 10^3/ul (1.5-7.7); ABS Nucleated RBC 0 10^3/ul; EGFR Non-African American 41.6 (>60); Eosinophil % 0 % (0-6); Hematocrit 29 % (35-47); Hemoglobin 9.3 g/dl (12.0-16.0); Lymphocyte % 1.9 % (25-47); Mean Corpuscular HGB Conc 32 g/dl (31-36); Mean Corpuscular Hemoglobin 34 pg (27-31); Mean Corpuscular Volume 106 fL (80-97); Mean Platelet Volume 7.3 um3 (7.4-10.4); Nucleated Red Blood Cells % 0.2; Platelet Count 176 10^3/ul (150-450); Red Blood Count 2.73 10^6/ul (4.00-5.40); Red Cell Distribution Width 17 % (10.5-15); White Blood Count 9.4 10^3/ul (3.5-10.8)
[2018-01-23] MEDS: amLODIPine TAB* 5 MG PO SCH (08:28)
[2018-01-23] MEDS: Aspirin EC TAB* 81 MG TAB.EC PO SCH (08:29)
[2018-01-23] MEDS: Furosemide TAB* 40 MG PO SCH (08:29)
[2018-01-23] MEDS: Gabapentin CAP(*) 300 MG PO SCH ×2 (08:29→21:33)
[2018-01-23] MEDS: Insulin LISPRO* 1 UNITS UNIT SUBCUT SCH ×4 (08:32→21:39)
--- NOTE | 2018-01-23 10:09 | PN ---
Progress Note - Progress Note Date of Service: 01/23/18 SOAP: Subjective: [Reports feeling better today. Less dyspnea. No new concerns. Anxious to get home.] Objective: [ Acetaminophen (Tylenol Tab*) 650 mg PO Q4H PRN PRN Reason: FEVER/PAIN Albuterol (Ventolin Hfa Inhaler*) 1 puff INH Q4H PRN PRN Reason: SOB/WHEEZING Albuterol/Ipratropium (Duoneb (Albuterol 2.5 Mg/Ipratropium 0.5 Mg)) 1 neb INH [id number] AWAKE REPLACED BY [facility] Last Admin: 01/23/18 07:26 Dose: 1 neb Albuterol/Ipratropium (Duoneb (Albuterol 2.5 Mg/Ipratropium 0.5 Mg)) 1 neb INH Q2H PRN PRN Reason: SOB/WHEEZING Amlodipine Besylate (Norvasc Tab*) 5 mg PO DAILY REPLACED BY [facility] Last Admin: 01/23/18 08:28 Dose: 5 mg Aspirin (Aspirin Ec Tab*) 81 mg PO DAILY REPLACED BY [facility] Last Admin: 01/23/18 08:29 Dose: 81 mg Dextrose (D50w Syringe 50 Ml*) 12.5 gm IV PUSH .FOR FS < 60 - SS PRN PRN Reason: FS < 60 Furosemide (Lasix Tab*) 40 mg PO DAILY REPLACED BY [facility] Last Admin: 01/23/18 08:29 Dose: 40 mg Gabapentin (Neurontin Cap(*)) 300 mg PO BID REPLACED BY [facility] Last Admin: 01/23/18 08:29 Dose: 300 mg Heparin Sodium (Porcine) (Heparin Vial(*)) 5,000 units SUBCUT Q8HR REPLACED BY [facility] Last Admin: 01/23/18 06:10 Dose: 5,000 units Insulin Human Lispro (Humalog*) 0 units SUBCUT ACHS REPLACED BY [facility]; Protocol Last Admin: 01/23/18 08:32 Dose: 4 units Methylprednisolone Sodium Succinate (Solu-Medrol 40 Mg) 40 mg IV Q8H REPLACED BY [facility] Stop: 01/23/18 14:00 Last Admin: 01/23/18 03:39 Dose: 40 mg Prednisone (Deltasone Tab*) 60 mg PO DAILY REPLACED BY [facility] Laboratory Results - last 24 hr 01/22/18 01/22/18 01/22/18 11:01 16:03 21:06 WBC RBC Hgb Hct MCV MCH MCHC RDW Plt Count MPV Neut % (Auto) Lymph % (Auto) [place] % (Auto) Eos % (Auto) Baso % (Auto) Absolute Neuts (auto) Absolute Lymphs (auto) Absolute Monos (auto) Absolute Eos (auto) Absolute Basos (auto) Absolute Nucleated RBC Nucleated RBC % Sodium Potassium Chloride Carbon Dioxide Anion Gap BUN Creatinine Est GFR ( Amer) Est GFR (Non-Af Amer) BUN/Creatinine Ratio Glucose POC Glucose (mg/dL) 89 294 H 170 H Calcium Total Bilirubin AST ALT Alkaline Phosphatase Total Protein Albumin Globulin Albumin/Globulin Ratio 01/23/18 01/23/18 01/23/18 06:04 06:04 07:23 WBC 9.4 RBC 2.73 L Hgb 9.3 L Hct 29 L MCV 106 H MCH 34 H MCHC 32 RDW 17 H Plt Count 176 MPV 7.3 L Neut % (Auto) 94.4 H Lymph % (Auto) 1.[address] [place] % (Auto) 3.7 Eos % (Auto) 0 Baso % (Auto) 0 Absolute Neuts (auto) 8.9 H Absolute Lymphs (auto) 0.2 L Absolute Monos (auto) 0.4 Absolute Eos (auto) 0 Absolute Basos (auto) 0 Absolute Nucleated RBC 0 Nucleated RBC % 0.2 Sodium 139 Potassium 4.4 Chloride 95 L Carbon Dioxide 38 H Anion Gap 6 BUN 27 H Creatinine 1.25 H Est GFR ( Amer) 50.3 Est GFR (Non-Af Amer) 41.6 BUN/Creatinine Ratio 21.6 H Glucose 243 H POC Glucose (mg/dL) 229 H Calcium 8.5 L Total Bilirubin 0.30 AST 20 ALT 24 Alkaline Phosphatase 78 Total Protein 5.4 L Albumin 3.5 Globulin 1.9 L Albumin/Globulin Ratio 1.8 Vital Signs: Temp Pulse Resp BP Pulse Ox 98.0 F 90 18 120/81 92 01/23/18 07:21 01/23/18 07:29 01/23/18 08:29 01/23/18 07:21 01/23/18 07:29 Exam: Gen: Relatively well appearing 77 yo female accompanied by her daughter in NAD CV: RRR, 3/6 SOCO Resp: reduced breath sounds diffusely, no w/c/r Abd: soft, nonTTP Ext: no edema] Assessment: [77 yo female with metastatic NSCLC on palliative gemcitabine who presented with c/o increased SOB likely due to COPD exacerbation and mild pulm edema on initial CT scan. Plan: [1. COPD exacerbation - improving - decrease steroids with plans to transition to po for tomorrow - cont inhaled therapy - Rx'd Spiriva from the office last visit, but reports copay was too high to fill 2. DM - cont sliding scale coverage at mealtime - anticipate hyperglycemia with Solumedrol 3. Metastatic NSCLC - unfortunately her restaging scans from earlier this week show evidence of tumor progression - question as to whether some of her SOB represents gemcitabine toxicity - will review change of regimen with Dr Kang - C6 was scheduled for today - held Dispo: anticipate likely dc home tomorrow. She has home O2.]
[2018-01-24] MEDS: Heparin VIAL(*) 5000 UNITS/ML VIAL (FIVE THOUSAND) SUBCUT SCH (05:59)
[2018-01-24] MEDS: Insulin LISPRO* 1 UNITS UNIT SUBCUT SCH ×2 (08:19→12:43)
[2018-01-24] MEDS: amLODIPine TAB* 5 MG PO SCH (08:58)
[2018-01-24] MEDS: Aspirin EC TAB* 81 MG TAB.EC PO SCH (08:58)
[2018-01-24] MEDS: Furosemide TAB* 40 MG PO SCH (08:59)
[2018-01-24] MEDS: Gabapentin CAP(*) 300 MG PO SCH (08:59)
[2018-01-24] MEDS ORDERED: predniSONE TAB* 20 MG PO SCH (09:00)
[2018-01-24 11:25] VITALS: BP 124/54
--- NOTE | 2018-01-25 13:07 | DS ---
DISCHARGE SUMMARY: DATE OF ADMISSION: 01/21/18 DATE OF DISCHARGE: 01/24/18 PRIMARY ONCOLOGIST AND ATTENDING PHYSICIAN: Dr. Tha Kang.* (DICTATED BY ISIS GÓMEZ) DISCHARGING PROVIDER: ISIS Gómez. PRIMARY DISCHARGE DIAGNOSES: 1. Chronic obstructive pulmonary disease exacerbation. 2. Metastatic non-small cell lung cancer with evidence of recent progression, on gemcitabine. 3. Non-insulin dependent diabetes. DISCHARGE MEDICATIONS: 1. ProAir 1 puff inhaled q.4 hours as needed for shortness of breath. 2. Aspirin 81 mg p.o. daily. 3. Symbicort 2 puffs inhaled twice daily. 4. Furosemide 20 mg p.o. daily. 5. Gabapentin 300 mg p.o. twice daily. 6. Glyburide/metformin 2.5/500 one tablet daily. 7. Prednisone on a tapering dose with instructions to take 60 mg x3 days, followed by 40 mg x3 days, followed by 20 mg x3 days. 8. Incruse 1one puff inhale daily. Medication Changes: 1. Replace Symbicort with Incruse. 2. Prednisone on a tapering dose as above. HOSPITAL IMAGIN. Chest x-ray, diffuse prominence of interstitial markings with patchy infiltrates at both lung bases with small bilateral pleural effusion suggestive of possible CHF. 2. CTA of the chest shows no evidence of PE. Findings consistent with congestive heart failure, right infrahilar and lower lobe masses unchanged from recent prior study. 3. Transthoracic echocardiogram shows an EF of 60% to 65%, abnormal diastolic function is observed. Mild aortic stenosis. HOSPITAL COURSE: This is a 77-year-old female with metastatic non-small cell lung cancer currently on single agent gemcitabine, status post cycle 5, who presented to the emergency department with complaints of significant shortness of breath. The patient has had some recent increased shortness of breath over the last several weeks thought to be secondary to her COPD. Prescription written for Spiriva, although co-pay was quite high and she did not fill this medication. When she presented to the emergency department, her initial labs showed mild macrocytic anemia and platelets of 103,000. Comprehensive metabolic panel was significant for elevated pCO2. Initial blood gas showed a normal pH with compensated respiratory acidosis. Initial chest x-ray showed interstitial edema and mild bilateral pleural effusion followed by CTA, which showed no PE and again mild interstitial edema and known right lung masses. The patient was subsequently admitted and diuresed with Lasix and treated for COPD exacerbation with IV steroids and appropriate inhaled therapies with significant improvement over a short period of time. She remained afebrile and was not neutropenic. The patient's steroids were weaned and she did not require aggressive diuresis. Etiology of her shortness of breath seems most likely due to COPD exacerbation but certainly some evidence of pulmonary edema. Echocardiogram did not show any significant congestive heart failure, although she does have some diastolic dysfunction. Question whether gemcitabine toxicity may be contributing to her shortness of breath. She completed restaging scan shortly before this hospitalization and those were compared to scans from October. There is evidence of tumor progression on her current therapy but no additional metastatic sites. DISPOSITION AND FOLLOWUP PLAN: The patient is being discharged to home. She is on supplemental oxygen 24 hours prior to admission and this will be continued. Discharged with steroids in a tapering dose as listed above. Incruse will replace her Spiriva, confirmed this will be a $40 co-pay for her with her pharmacy as compared to $117 for previously prescribed Spiriva. The patient will follow up with Dr. Kang regarding this hospitalization and additional treatment planning given evidence of progression on restaging scans. ISIS GÓMEZ [id number]/[facility] #: [id number] MTDD
== END 2018-01-24 14:05 | disposition home health service (06) | DRG 191 ==
LOC: ED 11:35 → SSU 17:24
PROVIDERS: ADMIT Internal Medicine; ATTEND Internal Medicine Hematology & Oncology
DX: J44.1 Chronic obstructive pulmonary disease with (acute) exacerbation (principal); E87.2 Acidosis; C34.90 Malignant neoplasm of unspecified part of unspecified bronchus or lung; C79.31 Secondary malignant neoplasm of brain; I50.9 Heart failure, unspecified; I25.10 Atherosclerotic heart disease of native coronary artery without angina pectoris; I11.0 Hypertensive heart disease with heart failure; E78.5 Hyperlipidemia, unspecified; D69.6 Thrombocytopenia, unspecified; K57.90 Diverticulosis of intestine, part unspecified, without perforation or abscess without bleeding; M19.90 Unspecified osteoarthritis, unspecified site; G43.909 Migraine, unspecified, not intractable, without status migrainosus; R09.02 Hypoxemia; D53.9 Nutritional anemia, unspecified; I35.0 Nonrheumatic aortic (valve) stenosis; R53.1 Weakness; Z92.21 Personal history of antineoplastic chemotherapy; Z87.01 Personal history of pneumonia (recurrent); Z92.3 Personal history of irradiation; Z87.891 Personal history of nicotine dependence; Z79.82 Long term (current) use of aspirin; Z79.84 Long term (current) use of oral hypoglycemic drugs; Z99.81 Dependence on supplemental oxygen; Z85.820 Personal history of malignant melanoma of skin; Z90.710 Acquired absence of both cervix and uterus; Z88.1 Allergy status to other antibiotic agents; Z88.8 Allergy status to other drugs, medicaments and biological substances; Z80.1 Family history of malignant neoplasm of trachea, bronchus and lung; Z90.49 Acquired absence of other specified parts of digestive tract; Z90.722 Acquired absence of ovaries, bilateral; G62.89 Other specified polyneuropathies; R01.1 Cardiac murmur, unspecified; E11.9 Type 2 diabetes mellitus without complications
CPT/HCPCS: 36415; 70470; 71046; 71260; 71275; 74177; 80048; 80053; 82803; 83605; 83880; 84484; 85025; 85379; 85610; 85730; 87040; 93005; 93306; 94640; 99231; 99232; 99239; 99285; A9270-GY; G8978-GP-CI; G8979-GP-CI; G8980-GP-CI; J1642; J1644; J1940; J2920; J2930; J7512; Q9967

== ENCOUNTER 2018-01-25 14:13 | Inpatient (IN) | payer MEDICARE ==
[2018-01-25 14:56] LABS: Hematocrit 35 % (35-47); Hemoglobin 11.3 g/dl (12.0-16.0); Mean Corpuscular HGB Conc 33 g/dl (31-36); Mean Corpuscular Hemoglobin 34 pg (27-31); Mean Corpuscular Volume 105 fL (80-97); Mean Platelet Volume 7.2 um3 (7.4-10.4); Platelet Count 312 10^3/ul (150-450); Red Blood Count 3.32 10^6/ul (4.00-5.40); Red Cell Distribution Width 18 % (10.5-15); White Blood Count 8.9 10^3/ul (3.5-10.8)
--- NOTE | 2018-01-25 14:57 | ED ---
Shortness of Breath - HPI Summary HPI Summary: This patient is a 77 year old F presenting to ED accompanied by her daughter with a chief complaint of SOB since getting home yesterday. The patient was seen in the ED yesterday for similar sx. She was admitted then discharged. Upon going home last night, she started to feel SOB again. Per the daughter, when the aide found her earlier today, her O2 sat was 83. Upon arrival to the ER, her O2 sat was around 70. The patient rates the pain 0/10 in severity. Symptoms aggravated by nothing. Symptoms alleviated by nothing. Patient reports chest congestion, wheezing, and non-productive cough. Patient denies fever. Denies PMHx of CHF. Patient was on chemo, but they cancelled it. - History of Current Complaint Chief Complaint: EDShortnessOfBreath Time Seen by Provider: 01/25/18 14:40 Hx Obtained From: Patient, Family/[facility] - daughter Onset/Duration: Sudden Onset, Lasting Days - since last night, Still Present, Worse Since Timing: Constant Current Severity: None Aggrevating Factors: Nothing Alleviating Factors: Nothing Associated Signs & Symptoms: Cough (Nonproductive), Wheezing - Allergy/Home Medications Allergies/Adverse Reactions: Allergies Allergy/AdvReac Type Severity Reaction Status Date / Time meperidine [From Demerol] Allergy Intermediate See Comment Verified 01/25/18 14: 35 benzonatate Allergy Unknown Unknown Verified 01/25/18 14:35 Reaction Details ciprofloxacin [From Cipro] Allergy Unknown Unknown Verified 01/25/18 14:35 Reaction Details cyclobenzaprine Allergy Unknown Unknown Verified 01/25/18 14:35 Reaction Details PMH/Surg Hx/FS Hx/Imm Hx Endocrine/Hematology History: Denies: Hx Anticoagulant Therapy, Hx Bone Marrow Disease, Hx Diabetes, Hx Systemic Lupus Erythematosus, Hx Sickle Cell Disease, Hx Thyroid Disease, Hx Anemia, Hx Unexplained Bleeding Cardiovascular History: Reports: Hx Aneurysm, Hx Coronary Artery Disease, Hx Hypercholesterolemia, Hx Hypertension Denies: Hx Angina, Hx Cardiac Arrest, Hx Cardiomegaly, Hx Congestive Heart Failure, Hx Pacemaker/ICD, Hx Peripheral Vascular Disease, Hx Rheumatic Fever, Hx Valvular Heart Disease, Other Cardiovascular Problems/Disorders Respiratory History: Reports: Hx Chronic Obstructive Pulmonary Disease (COPD), Hx Lung Cancer, Hx Pneumonia, Hx Pulmonary Edema - HX OF ABOUT 1 MONTH AGO 6/3 - HOSPITALIZED, Other Respiratory Problems/Disorders - wears 2L O2 at home Denies: Hx Asthma, Hx Pulmonary Embolism, Hx Sleep Apnea GI History: Reports: Hx Diverticulosis, Other GI Disorders - Bowel resection Denies: Hx Cirrhosis, Hx Crohn's Disease, Hx Gastroesophageal Reflux Disease , Hx Hiatal Hernia, Hx Irritable Bowel, Hx Jaundice, Hx Ulcer History: Reports: Other Problems/Disorders - HX OF KIDNEY INJURY A CHILD Denies: Hx Dialysis, Hx Kidney Infection, Hx Kidney Stones, Hx Renal Disease Musculoskeletal History: Reports: Hx Arthritis, Other Musculoskeletal History - hip pinning, Denies: Hx Rheumatoid Arthritis, Hx Bursitis, Hx Tendonitis Sensory History: Reports: Hx Contacts or Glasses Denies: Hx Cataracts, Hx Glaucoma, Hx Hearing Aid Opthamlomology History: Reports: Hx Contacts or Glasses Denies: Hx Cataracts, Hx Glaucoma Neurological History: Reports: Hx Headaches - HX OF, Hx Migraine, Other Neuro Impairments/Disorders - brain tumor Denies: Hx Nerve Disease, Hx Seizures, Hx Transient Ischemic Attacks (TIA) Psychiatric History: Denies: Hx Anxiety, Hx Depression - Cancer History Cancer Type, Location and Year: lung cancer, brain mets. Melanoma Hx Chemotherapy: Yes Hx Radiation Therapy: Yes - Surgical History Surgery Procedure, Year, and Place: > Brain Tumor Resection on 04/07/2015 at age 74. > Cerebral Aneurysm Clipping in 1981 at age 40. > Lap Sigmoid Colectomy in 2007 at age 66. > Total Hysterectomy in 2003 at age 62. > benign breast biopsy in 1991 at age 50. > brain tumor resection on 04/26/2016 at age 76. > hip fx, right, pinned in 2014 at age 73 Hx Anesthesia Reactions: No Infectious Disease History: No Infectious Disease History: Denies: Hx Clostridium Difficile, Hx Hepatitis, Hx Human Immunodeficiency Virus (HIV), Hx of Known/Suspected MRSA, Hx Shingles, Hx Tuberculosis, Hx Known/ Suspected VRE, Traveled Outside the [place] in Last 30 Days - Family History Known Family History: Negative: Cardiac Disease, Hypertension, Diabetes - Social History Alcohol Use: Rare Hx Substance Use: No Substance Use Type: Reports: None Hx Tobacco Use: Yes Smoking Status (MU): Former Smoker Type: Cigarettes Amount Used/How Often: 1 PPD Length of Time of Smoking/Using Tobacco: 53 YEARS Have You Smoked in the Last Year: No Review of Systems Negative: Fever, Chills Negative: Erythema Negative: Sore Throat Negative: Chest Pain Positive: Shortness Of Breath, Cough - non-productive, Other - wheezing, chest congestion Negative: Abdominal Pain, Vomiting, Nausea Negative: dysuria, hematuria Negative: Myalgia, Edema Negative: Rash Neurological: Other - denies dizziness All Other Systems Reviewed And Are Negative: Yes Physical Exam - Summary Physical Exam Summary: Constitutional: Well-developed, Well-nourished, Alert. (-) Distressed Skin: Warm, Dry HENT: Normocephalic; Atraumatic Eyes: Conjunctiva normal Neck: Musculoskeletal ROM normal neck. (-) JVD, (-) Stridor, (-) Tracheal deviation Cardio: Rhythm regular, rate normal, Heart sounds normal; Intact distal pulses; The pedal pulses are 2+ and symmetric. Radial pulses are 2+ and symmetric. (-) Murmur Pulmonary/Chest wall: (+) Respiratory distress, (-) Wheezes, (-) Rales. Course crackles throughout. Abd: Soft, (-) epigastric tenderness, (-) Distension, (-) Guarding, (-) Rebound Musculoskeletal: (-) Edema Lymph: (-) Cervical adenopathy Neuro: Alert, Oriented x3 Psych: Mood and affect Normal Triage Information Reviewed: Yes Vital Signs On Initial Exam: Initial Vitals Temp Pulse Resp BP Pulse Ox 96.9 F 89 22 112/63 72 01/25/18 14:15 01/25/18 14:15 01/25/18 14:15 01/25/18 14:15 01/25/18 14:15 Vital Signs Reviewed: Yes Diagnostics - Vital Signs Vital Signs Temp Pulse Resp BP Pulse Ox 01/25/18 14:28 97.2 F 127/72 01/25/18 14:26 92 80 01/25/18 14:15 96.9 F 89 22 112/63 72 - Laboratory Result Diagrams: 01/29/18 03:40 01/29/18 03:40 Lab Statement: Any lab studies that have been ordered have been reviewed, and results considered in the medical decision making process. - Radiology CXR Radiology Interpretation Completed By: Radiologist - SMALL RIGHT PLEURAL EFFUSION. Dr. Tirado has reviewed this radiology report. - CT CTA Chest/Thorax CT Interpretation Completed By: Radiologist - 1. No CT of evidence of pulmonary embolism. 2. Again seen is a right infrarenal mass abutting the lower right hilum measuring 1.9 x 2.7 cm in the axial plane. 3. Findings are consistent with cardiogenic pulmonary edema with patchy groundglass densities and a small right pleural effusion, an appearance similar to the January 13, 2018 CTA of the chest. 4. Calcified atherosclerosis at the aortic arch extending into the branch arteries causing various degrees of stenosis at the bilateral subclavian arteries. Please correlate to any signs or symptoms of upper terminal arterial deficiency and/or subclavian steal phenomenon. Dr. Tirado has reviewed this radiology report. - EKG 1426 Cardiac Rate: NL - 79 EKG Rhythm: Sinus Rhythm Summary of EKG Findings: No STEMI Re-Evaluation - Re-Evaluation First Eval Re-Evaluation Time: 17:14 Change: Unchanged Comment: Discussed results with the patient and plan for admission. Patient understands and agrees. Course/Dx - Course Assessment/Plan: This patient is a 77 year old F presenting to ED accompanied by her daughter with a chief complaint of SOB since getting home yesterday. EKG done at 1426 reveals NSR at 76 BPM and no STEMI. CXR reveals SMALL RIGHT PLEURAL EFFUSION. CTA chest/thorax reveals 1. No CT of evidence of pulmonary embolism. 2. Again seen is a right infrarenal mass abutting the lower right hilum measuring 1.9 x 2.7 cm in the axial plane. 3. Findings are consistent with cardiogenic pulmonary edema with patchy groundglass densities and a small right pleural effusion, an appearance similar to the January 13, 2018 CTA of the chest. 4. Calcified atherosclerosis at the aortic arch extending into the branch arteries causing various degrees of stenosis at the bilateral subclavian arteries. Please correlate to any signs or symptoms of upper terminal arterial deficiency and/or subclavian steal phenomenon. This patient will be admitted to Dr. Kang. Patient understands and agrees with this plan. - Diagnoses Provider Diagnoses: CHF exacerbation, Pulmonary edema - Physician Notifications Discussed Care of Patient With: Tha Kang Time Discussed With Above Provider: 17:28 Instructed by Provider To: Admit As Inpatient - Critical Care Time Critical Care Time: 30-74 min - 45 minutes Discharge - Sign-Out/Discharge Documenting (check all that apply): Patient Departure - admit - Discharge Plan Condition: Stable Disposition: ADMITTED TO [facility] - Billing Disposition and Condition Condition: STABLE Disposition: Admitted to [facility] - Attestation Statements Document Initiated by Scribe: Yes Documenting Scribe: Jarret Olvera Provider For Whom Donovan is Documenting (Include Credential): Vidal Tirado MD Scribe Attestation: Jarret Pedersen, scribed for Vidal Tirado MD on 01/29/18 at 1135. Scribe Documentation Reviewed: Yes Provider Attestation: The documentation as recorded by the scribeJarret accurately reflects the service I personally performed and the decisions made by me, Vidal Tirado MD
[2018-01-25 15:12] LABS: EGFR Non-African American 44.4 (>60)
[2018-01-25 15:28] LABS: ABS Basophils 0 10^3/ul (0-0.2); ABS Neutrophils 7.2 10^3/ul (1.5-7.7); Monocytes % 12 % (0-7)
--- NOTE | 2018-01-25 15:44 | RAD ---
HISTORY: hypoxia COMPARISONS: January 21, 2018 VIEWS: 4: Frontal dual-energy and lateral views of the chest. FINDINGS: CARDIOMEDIASTINAL SILHOUETTE: The cardiomediastinal silhouette is normal. CYN: The cyn are normal. PLEURA: There is blunting of the right costophrenic angle. LUNG PARENCHYMA: The lungs are clear. ABDOMEN: The upper abdomen is clear. There is no subphrenic gas. BONES AND SOFT TISSUES: No bone or soft tissue abnormalities are noted. OTHER: A right-sided chest port is noted. IMPRESSION: SMALL RIGHT PLEURAL EFFUSION
[2018-01-25] MEDS ORDERED: Iodixanol* (CONTRAST) 320 MG/ML 100 ML SDV IV ONE (15:56)
--- NOTE | 2018-01-25 16:54 | RAD ---
INDICATION: Hypoxia and dyspnea COMPARISON: Similar CTA dated January 21, 2018 TECHNIQUE: Axial source images were acquired following the administration of 80 mL of Visipaque [address] angiographic technique. Coronal and sagittal reconstructed images were constructed and reviewed. FINDINGS: The patient's right subclavian vein Mediport is noted with the tip terminating in the superior vena cava. There there are no filling defects in the pulmonary arteries to indicate acute pulmonary embolic disease. Similar to the prior CT of the chest there is a soft tissue mass abutting the lower right hilum that measures 1.9 x 2.7 cm in the axial plane. It is not changed significantly since the previous CTA of the chest. There is mild groundglass opacification. There is a small right-sided pleural effusion with compressive consolidation in the adjacent right lower lobe. There is a mild degree of cardiomegaly similar to the previous CTA. There is no large pericardial effusion. There is coarse calcification at the coronary arteries, aortic ring and arch of the aorta. Coarse atherosclerotic calcification extends into the major branch vessels causing at least 50% degree stenosis at the proximal left subclavian artery (axial image 58 and coronal image 64). There is an additional focus of coarse calcification at the right subclavian artery immediately beyond the bifurcation with the right carotid artery (axial image 57 and coronal image 59). There is no mediastinal, hilar, or axillary lymphadenopathy. The visualized osseous structures appear normal. Limited views of the upper abdomen show no abnormalities. IMPRESSION: 1. No CT of evidence of pulmonary embolism. 2. Again seen is a right infrarenal mass abutting the lower right hilum measuring 1.9 x 2.7 cm in the axial plane. 3. Findings are consistent with cardiogenic pulmonary edema with patchy groundglass densities and a small right pleural effusion, an appearance similar to the January 13, 2018 CTA of the chest. 4. Calcified atherosclerosis at the aortic arch extending into the branch arteries causing various degrees of stenosis at the bilateral subclavian arteries. Please correlate to any signs or symptoms of upper terminal arterial deficiency and/or subclavian steal phenomenon.
[2018-01-25] MEDS ORDERED: Furosemide IV* 10 MG/ML 2 ML VIAL (20 MG) IV ONE (19:39)
[2018-01-25] MEDS ORDERED: oxyCODONE/Acetamin 5/325 MG* TAB PO PRN (19:40)
[2018-01-25] MEDS ORDERED: Acetaminophen TAB* 325 MG PO PRN (19:40)
[2018-01-25] MEDS ORDERED: Furosemide IV* 10 MG/ML 2 ML VIAL (20 MG) ONE (19:47)
[2018-01-25] MEDS: Enoxaparin(*) 40 MG/0.4 ML SYR SUBCUT SCH (22:31)
[2018-01-25] MEDS: TRIMETH IVPB SCH (22:32)
[2018-01-25] MEDS: Gabapentin CAP(*) 300 MG PO SCH (22:32)
[2018-01-25] MEDS: D5W IVPB SCH (22:32)
[2018-01-25] MEDS: SULFAMETHOXAZOLE IVPB SCH (22:32)
[2018-01-25] MEDS: Senna TAB PO SCH (22:32)
[2018-01-26] MEDS: Albuterol/Ipratropium NEB.SOL* Albuterol 2.5 MG/Ipratropium 0.5 MG 3 ML INH PRN (01:14)
--- NOTE | 2018-01-26 03:59 | HP ---
HISTORY AND PHYSICAL: DATE OF ADMISSION: 01/25/18 CHIEF COMPLAINT: Shortness of breath. IDENTIFICATION: A 77-year-old female currently on gemcitabine chemotherapy for metastatic non-small cell lung cancer. HISTORY OF PRESENT ILLNESS: Ms. Goldsmith now has been under our care for metastatic lung cancer. She has a right lower lobe mass as well as CURTAIN DRIER metastases. She had radiation in the past followed by immunotherapy and then chemotherapy. Of note, she developed a peripheral neuropathy on nivolumab and has been on long-term prednisone, recently 10 to 20 mg per day, which improves her symptoms. Because of neuropathy, she has changed off of immunotherapy and on to chemotherapy with gemcitabine. The first dose of gemcitabine being . She has generally tolerated well and treated up through 01/09/18. She had CT scans done on 10/30/17, which showed stable disease in the chest, no abdominal disease and a CT scan of the brain on 10/04/17 that was also stable. She did have increasing shortness of breath a week prior to her admission on . It seemed like the breathing difficulty has been developing since mid month, but then progressed to the point where she could not get out of a chair, called her daughter, who called the ambulance, came to the emergency room. She has had saturation going down to 73% on room air, was admitted. Diagnosis for that admission was COPD and she was placed on prednisone with improved symptoms. Yesterday, she was able to walk around the floor of the hospital without difficulty. She was discharged home on 6 mg of Lasix with a fairly rapid taper over 9 days. As soon as she got home, she could not breathe anymore. She took a wheelchair into the house and never left it. She apparently got up to go to the bathroom. Today, she is feeling increasing short of breath despite not moving at all and she called the ambulance. On presentation, she had a sat climbed back down to the 70% on room air and she is currently on a face mask satting 98%. Heart rate has been stable in the 80s, BP 105/73. Blood work is significant for a carbon dioxide of 44, which is chronically elevated, but raised recently. CT scan shows diffuse interstitial infiltrate consistent with edema. The pulmonary mass has increased on her CT scan on 01/21/[address] scan in October and is stable on the CTA done today. No evidence of thrombosis. She has had a cough. She has had no fevers or chills, but she is cold in the emergency room right now. She denies nausea, vomiting, diarrhea. She does not have any new focal extra pains. PAST MEDICAL HISTORY: 1. Non-small cell lung cancer. Presented with CURTAIN DRIER metastases and a right lower lobe mass. She has craniotomy with resection of her brain lesions status post radiation therapy. She had a prolonged response to immunotherapy complicated by peripheral neuropathy and now recently on gemcitabine. 2. Coronary artery disease. 3. COPD. 4. Diverticulitis. 5. Hypertension. 6. Hyperlipidemia. 7. History of melanoma. PAST SURGICAL HISTORY: 1. Craniotomy. 2. Hysterectomy with bilateral salpingo-oophorectomy. 3. Colectomy in 2007. CURRENT MEDICATIONS: 1. ProAir 1 puff q.4 hours as needed p.r.n. 2. Aspirin 81 a day. 3. Symbicort 2 puffs twice a day. 4. Furosemide 20 mg a day. 5. Gabapentin 300 mg twice daily. 6. Glyburide with metformin 2.5/500 one daily. 7. Prednisone 60 mg x3 days, then 40 mg followed by 20 for 3 days. ALLERGIES: DEMEROL, BENZONATATE, CIPROFLOXACIN and CYCLOBENZAPRINE. FAMILY HISTORY: Mother of lung cancer and was a smoker. SOCIAL HISTORY: Lives alone with daughter provides close support. Her daughter is her healthcare proxy, Alicia Goldsmith. Quit smoking in 2007 with a possible 2-pack- year history. REVIEW OF SYSTEMS: As per HPI. In addition, she has a diffuse muscle weakness. No focal CURTAIN DRIER complaints. PHYSICAL EXAMINATION VITAL SIGNS: BP 105/73, O2 saturation 98% on a face mask, respirations 20, heart rate 83. HEENT: Cushingoid. Oral mucosa moist. No lesions. No JVD. LUNGS: She has marked decrease in breath sounds throughout with poor air movement. She has central congestion, no wheezes. HEART: Regular rate and rhythm. S1, S2. Slightly distant. ABDOMEN: Obese, nontender, nondistended. EXTREMITIES: Trace lower extremity edema with good pulses x4. NEUROLOGIC: Alert and oriented x3. Strength is 5/5 throughout, good finger-to- nose on both hands. I did not walk her. She is in bed. DIAGNOSTIC STUDIES/LAB DATA: As noted in the HPI. In addition, her potassium is 3.9, creatinine 1.18, close to her baseline. Glucose came in at 194 on admission. She has a hemoglobin of 11.3, close to her baseline. MCV of 105, platelets 312, white count 8.9. CTA shows the right lower lobe mass, which is increased from October. She had a CT scan of the head on 01/18/18 that showed right cerebellar lesion, an enhancement that was new from October. ASSESSMENT AND PLAN: A 77-year-old female with progressive metastatic non- small cell lung cancer as well as acute shortness of breath. Differential diagnosis for shortness of breath includes congestive heart failure, chemo side effect of gemcitabine, I worry about PCP pneumonia given her prolonged steroid use. There is clearly underlying chronic obstructive pulmonary disease and this could be acute bronchitis. She has progressive non-small cell lung cancer and is not a candidate for additional therapy. 1. Shortness of breath. We will give her IV Lasix as there seems to be a component of fluid overload either from gemcitabine or diastolic dysfunction, 20 mg IV now and then 20 mg IV tomorrow morning then hold. 2. She has central congestion. I will consult Respiratory Therapy for breathing treatments and will put her on Xopenex. 3. Check LDH and will apparently start her on Bactrim. We will use PCP dose, but can reduce it to community-acquired pneumonia later. 4. We will need to discuss long-term plan for cancer. She ultimately needs transition to hospice. I would like to have this discussion when she is not in acute distress. 5. We will plan regular diet. I do not see any evidence of aspiration. 6. High risk deep venous thrombosis. 7. Oxygen titrated to sat < 91% 8. PT once improved respiration. [id number]/CPS #: [id number] MTDD
[2018-01-26] MEDS: D5W IVPB SCH ×3 (04:49→20:00)
[2018-01-26] MEDS: TRIMETH IVPB SCH ×3 (04:49→20:00)
[2018-01-26] MEDS: SULFAMETHOXAZOLE IVPB SCH ×3 (04:49→20:00)
[2018-01-26 06:26] LABS: Hematocrit 28 % (35-47); Hemoglobin 9.2 g/dl (12.0-16.0); Mean Corpuscular HGB Conc 33 g/dl (31-36); Mean Corpuscular Hemoglobin 34 pg (27-31); Mean Corpuscular Volume 104 fL (80-97); Mean Platelet Volume 7.2 um3 (7.4-10.4); Platelet Count 258 10^3/ul (150-450); Red Blood Count 2.68 10^6/ul (4.00-5.40); Red Cell Distribution Width 17 % (10.5-15); White Blood Count 9.5 10^3/ul (3.5-10.8)
[2018-01-26 06:46] LABS: EGFR Non-African American 41.9 (>60)
[2018-01-26 06:57] LABS: ABS Neutrophils 7.9 10^3/ul (1.5-7.7)
[2018-01-26] MEDS ORDERED: Furosemide IV* 10 MG/ML 2 ML VIAL (20 MG) IV ONE (07:00)
[2018-01-26] MEDS ORDERED: Glyburid/Metformin 2.5/500(NF) TAB PO SCH (09:00)
[2018-01-26] MEDS ORDERED: predniSONE TAB* 10 MG PO SCH (09:00)
[2018-01-26] MEDS ORDERED: predniSONE TAB* 20 MG PO SCH (09:00)
[2018-01-26] MEDS: Gabapentin CAP(*) 300 MG PO SCH ×2 (09:08→19:52)
[2018-01-26] MEDS: glyBURIDE TAB* 2.5 MG PO SCH (09:08)
[2018-01-26] MEDS: Aspirin EC TAB* 81 MG TAB.EC PO SCH (09:09)
[2018-01-26] MEDS: Senna TAB PO SCH ×2 (09:09→19:50)
--- NOTE | 2018-01-26 10:31 | PN ---
Progress Note - Progress Note Date of Service: 01/26/18 SOAP: Subjective: []Feels better then last night. Still very SOB and not moving around. Eating. Not in pain and no fevers. Acetaminophen (Tylenol Tab*) 650 mg PO Q4H PRN PRN Reason: FEVER/PAIN Albuterol/Ipratropium (Duoneb (Albuterol 2.5 Mg/Ipratropium 0.5 Mg)) 1 neb INH [id number] AWAKE PRN PRN Reason: sob/wheexing Last Admin: 01/26/18 01:14 Dose: 1 neb Aspirin (Aspirin Ec Tab*) 81 mg PO DAILY [facility] Last Admin: 01/26/18 09:09 Dose: 81 mg Enoxaparin Sodium (Lovenox(*)) 40 mg SUBCUT Q24H [facility] Last Admin: 01/25/18 22:31 Dose: 40 mg Gabapentin (Neurontin Cap(*)) 300 mg PO BID [facility] Last Admin: 01/26/18 09:08 Dose: 300 mg Glyburide (Diabeta Tab*) 2.5 mg PO DAILY [facility] Last Admin: 01/26/18 09:08 Dose: 2.5 mg Trimethoprim/Sulfamethoxazole (420 mg/ Dextrose) 526.25 mls @ 263.125 mls/hr IVPB Q8H [facility] Last Admin: 01/26/18 04:49 Dose: 263.125 mls/hr Metformin HCl (Glucophage*) 500 mg PO DAILY [facility] Oxycodone/Acetaminophen (Percocet 5/325 Tab*) 1 tab PO Q4H PRN PRN Reason: Pain Prednisone (Deltasone Tab*) 60 mg PO DAILY [facility]; Taper Stop: 02/07/18 08:59 Last Admin: 01/26/18 09:09 Dose: 60 mg Senna (Senokot Tab*) 1 tab PO BID [facility] Last Admin: 01/26/18 09:09 Dose: 1 tab Objective: [] Vital Signs Temp Pulse Resp BP Pulse Ox 98.4 F 85 20 105/63 95 01/26/18 07:52 01/26/18 07:52 01/26/18 09:08 01/26/18 07:52 01/26/18 07:52 Sat 95% on 3 L HEENT - OM dry, no lesions decreased BS, central congestion. [id number] + BS , obese +1 PHONG Neuro - AAOx 3 and gross non focal Assessment: []77 year old SOB and FTT. DDx: gemicitabine, bornchitis, PCP possible. Underlying COPD and metastatic lung cancer. Plan: []1. Will hold on additonal diuretics, euvolemic to hypovolemic today. 2. Continue Oxygen to sat < 91% 3. Continue respiratory therapy, PT and can increase oxygen as needed for PT 4. Continue Bactrim, Prednisone to 50 mg po daily 5. Discussed hospice when improved 6. DNR/DNI 7. Decreased Hgb, follow for now.
[2018-01-26] MEDS: Enoxaparin(*) 40 MG/0.4 ML SYR SUBCUT SCH (19:50)
[2018-01-26] MEDS: metFORMIN* 500 MG TAB PO SCH (19:54)
[2018-01-27] MEDS: TRIMETH IVPB SCH ×3 (03:57→21:02)
[2018-01-27] MEDS: SULFAMETHOXAZOLE IVPB SCH ×3 (03:57→21:02)
[2018-01-27] MEDS: D5W IVPB SCH ×3 (03:57→21:02)
[2018-01-27 07:02] LABS: Hematocrit 26 % (35-47); Mean Corpuscular HGB Conc 34 g/dl (31-36); Mean Corpuscular Hemoglobin 35 pg (27-31); Mean Corpuscular Volume 103 fL (80-97); Platelet Count 245 10^3/ul (150-450); Red Blood Count 2.55 10^6/ul (4.00-5.40); Red Cell Distribution Width 18 % (10.5-15)
[2018-01-27 07:21] LABS: EGFR Non-African American 34.2 (>60)
[2018-01-27 07:45] LABS: ABS Basophils 0 10^3/ul (0-0.2); ABS Eosinophils 0 10^3/ul (0-0.6); ABS Lymphocytes 0.5 10^3/ul (1.0-4.8); ABS Monocytes 0.9 10^3/ul (0-0.8); ABS Neutrophils 6.6 10^3/ul (1.5-7.7); ABS Nucleated RBC 0 10^3/ul; Eosinophil % 0.2 % (0-6); Lymphocyte % 5.7 % (25-47); Nucleated Red Blood Cells % 0.3
--- NOTE | 2018-01-27 07:45 | PN ---
Progress Note - Progress Note Date of Service: 01/27/18 SOAP: Subjective: definitely breathing better today. agrees that she can not get any more chemotherapy, though does not seem to understand the difference between hospice and just VNS at home. Objective: Vital Signs Temp Pulse Resp BP Pulse Ox 97.5 F 74 16 110/61 99 01/27/18 03:08 01/27/18 03:08 01/27/18 03:08 01/27/18 03:08 01/27/18 03:08 sitting up in a chair in nad perr eomi op dry dec bs throughout s1 s2 nl soft obese nt no le edema A+O x 3, nonfocal neurological exam Laboratory Results - last 24 hr 01/27/18 01/27/18 05:58 05:58 WBC 8.0 RBC 2.55 L Hgb 9.0 L Hct 26 L MCV 103 H MCH 35 H MCHC 34 RDW 18 H Plt Count 245 MPV 7.0 L Neut % (Auto) 83.2 H Lymph % (Auto) 5.7 L [place] % (Auto) 10.9 H Eos % (Auto) 0.2 Baso % (Auto) 0 Absolute Neuts (auto) 6.6 Absolute Lymphs (auto) 0.5 L Absolute Monos (auto) 0.9 H Absolute Eos (auto) 0 Absolute Basos (auto) 0 Absolute Nucleated RBC 0 Nucleated RBC % 0.3 Sodium 137 Potassium 3.8 Chloride 92 L Carbon Dioxide 42 H* Anion Gap 3 BUN 24 Creatinine 1.48 H Est GFR ( Amer) 41.4 Est GFR (Non-Af Amer) 34.2 BUN/Creatinine Ratio 16.2 Glucose 107 H Calcium 8.1 L Total Bilirubin 0.20 AST 17 ALT 24 Alkaline Phosphatase 73 Total Protein 5.3 L Albumin 3.3 Globulin 2.0 Albumin/Globulin Ratio 1.7 Acetaminophen (Tylenol Tab*) 650 mg PO Q4H PRN PRN Reason: FEVER/PAIN Albuterol/Ipratropium (Duoneb (Albuterol 2.5 Mg/Ipratropium 0.5 Mg)) 1 neb INH [id number] AWAKE PRN PRN Reason: sob/wheexing Last Admin: 01/26/18 01:14 Dose: 1 neb Aspirin (Aspirin Ec Tab*) 81 mg PO DAILY [facility] Last Admin: 01/26/18 09:09 Dose: 81 mg Enoxaparin Sodium (Lovenox(*)) 40 mg SUBCUT Q24H [facility] Last Admin: 01/26/18 19:50 Dose: 40 mg Gabapentin (Neurontin Cap(*)) 300 mg PO BID [facility] Last Admin: 01/26/18 19:52 Dose: 300 mg Glyburide (Diabeta Tab*) 2.5 mg PO DAILY [facility] Last Admin: 01/26/18 09:08 Dose: 2.5 mg Trimethoprim/Sulfamethoxazole (420 mg/ Dextrose) 526.25 mls @ 263.125 mls/hr IVPB Q8H [facility] Last Admin: 01/27/18 03:57 Dose: 263.125 mls/hr Metformin HCl (Glucophage*) 500 mg PO BID [facility] Last Admin: 01/26/18 19:54 Dose: 500 mg Oxycodone/Acetaminophen (Percocet 5/325 Tab*) 1 tab PO Q4H PRN PRN Reason: Pain Prednisone (Deltasone Tab*) 50 mg PO DAILY [facility]; Taper Stop: 02/06/18 08:59 Senna (Senokot Tab*) 1 tab PO BID [facility] Last Admin: 01/26/18 19:50 Dose: 1 tab Assessment: 77 year old w metastatic lung cancer on palliative gemcitabine, with severe COPD presenting with recurrent SOB. DDx: gemicitabine pneumonitis, bronchitis/ COPD exacerbation, or PCP (less likely though does feel improved on bactrim added by Dr. Kang). Likely multifactorial. Plan: 1. Will hold on additonal diuretics, euvolemic 2. Continue Oxygen to sat < 91% 3. Continue respiratory therapy, PT and can increase oxygen as needed for PT 4. Continue Bactrim, Prednisone 50 mg po daily 5. Discussed hospice when improved--patient not clear on this, will have Dr. Kang discuss again on Monday as this does seem to be the most appropriate. I am concerned that if she goes on VNS she will be sent back to the hospital every time her breathing deteriorates and with untreatable lung cancer this does NOT seem appropriate 6. DNR/DNI--discussed this again at length with patient and she is very clear that she would never want intubation given the state of her lungs
[2018-01-27] MEDS: metFORMIN* 500 MG TAB PO SCH ×2 (08:56→21:04)
[2018-01-27] MEDS: Gabapentin CAP(*) 300 MG PO SCH ×2 (08:56→21:03)
[2018-01-27] MEDS: Aspirin EC TAB* 81 MG TAB.EC PO SCH (08:56)
[2018-01-27] MEDS: glyBURIDE TAB* 2.5 MG PO SCH (08:56)
[2018-01-27] MEDS: predniSONE TAB* 10 MG PO SCH (08:57)
[2018-01-27] MEDS: Senna TAB PO SCH ×2 (08:57→21:02)
[2018-01-27] MEDS: Albuterol/Ipratropium NEB.SOL* Albuterol 2.5 MG/Ipratropium 0.5 MG 3 ML INH PRN (14:55)
[2018-01-27] MEDS: NS 0.9% 500 ML* 500 ML IV SCH (18:18)
[2018-01-27] MEDS: Enoxaparin(*) 40 MG/0.4 ML SYR SUBCUT SCH (21:02)
[2018-01-28] MEDS: SULFAMETHOXAZOLE IVPB SCH ×3 (03:44→20:20)
[2018-01-28] MEDS: D5W IVPB SCH ×3 (03:44→20:20)
[2018-01-28] MEDS: TRIMETH IVPB SCH ×3 (03:44→20:20)
[2018-01-28 07:43] LABS: Hematocrit 26 % (35-47); Hemoglobin 8.6 g/dl (12.0-16.0); Mean Corpuscular HGB Conc 33 g/dl (31-36); Mean Corpuscular Hemoglobin 34 pg (27-31); Mean Corpuscular Volume 104 fL (80-97); Mean Platelet Volume 7.5 fL (7.4-10.4); Platelet Count 276 10^3/ul (150-450); Red Blood Count 2.51 10^6/ul (4.00-5.40); Red Cell Distribution Width 17 % (10.5-15); White Blood Count 7.8 10^3/ul (3.5-10.8)
[2018-01-28 07:55] LABS: EGFR Non-African American 24.3 (>60)
[2018-01-28 08:18] LABS: ABS Basophils 0 10^3/ul (0-0.2); ABS Eosinophils 0.1 10^3/ul (0-0.6); ABS Lymphocytes 0.6 10^3/ul (1.0-4.8); ABS Monocytes 0.9 10^3/ul (0-0.8); ABS Neutrophils 6.2 10^3/ul (1.5-7.7); ABS Nucleated RBC 0 10^3/ul; Eosinophil % 1.2 % (0-6); Lymphocyte % 7.5 % (25-47); Nucleated Red Blood Cells % 0.2
[2018-01-28] MEDS ORDERED: metFORMIN* 500 MG TAB PO SCH (09:00)
[2018-01-28] MEDS ORDERED: Dextrose 50% Syringe 50 ML* 25 GM/50 ML SYRINGE IV PUSH PRN (09:35)
[2018-01-28] MEDS: Senna TAB PO SCH ×2 (10:04→19:51)
[2018-01-28] MEDS: Aspirin EC TAB* 81 MG TAB.EC PO SCH (10:08)
[2018-01-28] MEDS: Gabapentin CAP(*) 300 MG PO SCH (10:08)
[2018-01-28] MEDS: predniSONE TAB* 10 MG PO SCH (10:22)
[2018-01-28] MEDS: Insulin LISPRO* 1 UNITS UNIT SUBCUT SCH ×3 (12:00→20:20)
[2018-01-28] MEDS: Albuterol/Ipratropium NEB.SOL* Albuterol 2.5 MG/Ipratropium 0.5 MG 3 ML INH PRN (14:48)
[2018-01-28] MEDS: Heparin VIAL(*) 5000 UNITS/ML VIAL (FIVE THOUSAND) SUBCUT SCH ×2 (16:30→21:04)
[2018-01-28] MEDS ORDERED: Meclizine TAB* 12.5 MG PO PRN (17:16)
--- NOTE | 2018-01-28 17:28 | PN ---
Subjective Date of Service: 01/28/18 Interval History: Pt seen and examined. Meds and labs reviewed. CC: Complains of being very sleep during the days despite mentioning having a good night sleep. Also complains of vertigo on movementespecially moving head ROS: Denied BENNETT/dizziness, F/C, N/V, CP, SOB, increased cough, sputum production , abd pain, diarrhea, constipation, dysuria, myalgias, arthralgias, throat pain , and new skin lesions. The rest of the 14 point ROS are unremarkable. PHYSICAL EXAM: GEN APPEARANCE: Asleep, arousable, but easily falls asleep, not in acute distress HEENT: NC/AT, PERRLA, moist oral mucosa, (-) throat erythema NECK: Soft, supple, (-) cervical LAD, (-)JVD HEART: S1S2 WNL, RRR, No MRG CHEST: CTA, BL, GAE, No W/R/R ABD: Soft, ND/NT, NABS 4x Q EXT: No C/C/E SKIN: Warm to touch PSYCH: No active psychosis, hallucinations, depression, SI/HI Objective Active Medications: Acetaminophen (Tylenol Tab*) 650 mg PO Q4H PRN PRN Reason: FEVER/PAIN Albuterol/Ipratropium (Duoneb (Albuterol 2.5 Mg/Ipratropium 0.5 Mg)) 1 neb INH [id number] AWAKE PRN PRN Reason: sob/wheexing Last Admin: 01/28/18 14:48 Dose: 1 neb Aspirin (Aspirin Ec Tab*) 81 mg PO DAILY [facility] Last Admin: 01/28/18 10:08 Dose: 81 mg Dextrose (D50w Syringe 50 Ml*) 12.5 gm IV PUSH .FOR FS < 60 - SS PRN PRN Reason: FS < 60 Gabapentin (Neurontin Cap(*)) 200 mg PO BID [facility] Heparin Sodium (Porcine) (Heparin Flush Port (Ivad)) 5 ml FLUSH DAILY PRN; Protocol PRN Reason: access port Heparin Sodium (Porcine) (Heparin Vial(*)) 5,000 units SUBCUT Q8HR [facility] Last Admin: 01/28/18 16:30 Dose: 5,000 units Trimethoprim/Sulfamethoxazole (420 mg/ Dextrose) 526.25 mls @ 263.125 mls/hr IVPB Q8H [facility] Last Admin: 01/28/18 12:46 Dose: 263.125 mls/hr Sodium Chloride (Ns 0.9% 500 Ml*) 500 mls @ 10 mls/hr IV .KVO (10 ML/HR) [facility] Last Admin: 01/27/18 18:18 Dose: 10 mls/hr Insulin Human Lispro (Humalog*) 0 units SUBCUT ACHS [facility]; Protocol Last Admin: 01/28/18 16:31 Dose: 9 unit Meclizine HCl (Antivert Tab*) 25 mg PO Q8HR PRN PRN Reason: VERTIGO Oxycodone/Acetaminophen (Percocet 5/325 Tab*) 1 tab PO Q4H PRN PRN Reason: Pain Prednisone (Deltasone Tab*) 40 mg PO Q3D [facility]; Taper Stop: 02/06/18 08:59 Last Admin: 01/28/18 10:22 Dose: 40 mg Senna (Senokot Tab*) 1 tab PO BID [facility] Last Admin: 01/28/18 10:04 Dose: 1 tab Vital Signs - 8 hr 01/28/18 01/28/18 01/28/18 10:08 10:53 12:01 Temperature 97.4 F Pulse Rate 73 Respiratory 20 22 14 Rate Blood Pressure 99/52 (mmHg) O2 Sat by Pulse 89 Oximetry 01/28/18 01/28/18 14:53 15:07 Temperature 97.4 F Pulse Rate 76 79 Respiratory 17 16 Rate Blood Pressure 144/50 (mmHg) O2 Sat by Pulse 98 99 Oximetry Oxygen Devices in Use Now: Nasal Cannula, OxyMask Result Diagrams: 01/28/18 06:50 01/28/18 11:34 Microbiology and Other Data: Microbiology 01/25/18 15:08 Aerobic Blood Culture - Preliminary Blood Venous No Growth Day 3 Anaerobic Blood Culture - Preliminary No Growth Day 3 01/25/18 14:55 Aerobic Blood Culture - Preliminary Blood Venous No Growth Day 3 Anaerobic Blood Culture - Preliminary No Growth Day 3 Assess/Plan/Problems-Billing Assessment: - Patient Problems (1) SOB (shortness of breath) Current Visit: Yes Status: Acute Code(s): R06.02 - SHORTNESS OF BREATH SNOMED Code(s): 599493453 Comment: -Per Dr. Cambpell maybe due to gemicitabine pneumonitis, bronchitis/COPD exacerbation or PCP -Continue O2, respiratory therapy, PT, Bactrim, and Prednisone -Defer with Heme/Onc team for any further changes (2) Lethargy Current Visit: Yes Status: Acute Code(s): R53.83 - OTHER FATIGUE SNOMED Code(s): 083263920 Comment: -Possibly due to pain management? -Will decrease Gabapentin and will defer any further changes from Heme/Onc Dept -Arousable and responds appropriately when awake (3) Vertigo Current Visit: Yes Status: Acute Code(s): R42 - DIZZINESS AND GIDDINESS SNOMED Code(s): 314524067 Comment: -Will place on PRN Meclizine for now given this can also cause further lethargy -Will ask PT to eval for Kierra-Hallpike maneuver, however, may miss 20% of real BPPV due to posterior cemicircular canal and sensitivity issues (4) DVT prophylaxis Current Visit: No Status: Acute Priority: Medium Code(s): IGI9931 - SNOMED Code(s): 130496585 Comment: -On HSQ Status and Disposition: Defer with Heme/Onc team
[2018-01-28] MEDS ORDERED: Polyethylene Glycol 3350* 17 GM PACKET PO PRN (18:03)
[2018-01-28] MEDS ORDERED: Ondansetron INJ* 2 MG/ML VIAL IV PRN (18:04)
[2018-01-28] MEDS: NS 0.9% 500 ML* 500 ML IV SCH (18:28)
[2018-01-28] MEDS: Gabapentin CAP(*) 100 MG PO SCH (19:51)
[2018-01-28 21:14] LABS: Hematocrit 28 % (35-47); Hemoglobin 9.1 g/dl (12.0-16.0); Mean Corpuscular HGB Conc 33 g/dl (31-36); Mean Corpuscular Hemoglobin 34 pg (27-31); Mean Corpuscular Volume 104 fL (80-97); Platelet Count 284 10^3/ul (150-450); Red Blood Count 2.67 10^6/ul (4.00-5.40); Red Cell Distribution Width 17 % (10.5-15); White Blood Count 6.1 10^3/ul (3.5-10.8)
[2018-01-28] MEDS ORDERED: Zosyn per Pharmacy* NOTE FOLLOW UP PRN (21:54)
[2018-01-28] MEDS ORDERED: ZOSYN 3.375 GM x ONE DOSE over 30 miuntes IVPB ×2 (22:00)
[2018-01-29] MEDS: ZOSYN 3.375 GM Q8H per EXTENDED INFUSION IVPB SCH ×4 (02:50→10:04)
[2018-01-29 03:51] LABS: Hematocrit 27 % (35-47); Mean Corpuscular HGB Conc 33 g/dl (31-36); Mean Corpuscular Hemoglobin 34 pg (27-31); Mean Corpuscular Volume 104 fL (80-97); Mean Platelet Volume 7.5 fL (7.4-10.4); Platelet Count 282 10^3/ul (150-450); Red Blood Count 2.64 10^6/ul (4.00-5.40); Red Cell Distribution Width 17 % (10.5-15); White Blood Count 6.6 10^3/ul (3.5-10.8)
[2018-01-29 04:07] LABS: EGFR Non-African American 23.7 (>60)
[2018-01-29 04:20] LABS: ABS Basophils 0 10^3/ul (0-0.2); ABS Neutrophils 5.4 10^3/ul (1.5-7.7); ABS Neutrophils 5.8 10^3/ul (1.5-7.7); Monocytes % 4 % (0-7)
[2018-01-29] MEDS: Heparin VIAL(*) 5000 UNITS/ML VIAL (FIVE THOUSAND) SUBCUT SCH (05:06)
--- NOTE | 2018-01-29 07:59 | PN ---
Hospitalist Progress Note Date of Service: 01/28/18 called to bedside due to pt c/o chest pressure and sob. stat ekg did not reveal any acute change. her stat chest x ray however showed a possible opacities on the rml/rll. pt is arousable and aao times three despite staff said she has been sleeping the whole day. stat lab done did not reveal acute increase of wbc but her lactic acid was 2.6. lung field b/l basilar scattered rales---> pt might aspirate and is under high risk for that ---> will broaden her abx from bactrim to zosyn for now strict npo consider swallow eval in am
[2018-01-29] MEDS: Insulin LISPRO* 1 UNITS UNIT SUBCUT SCH ×4 (08:00→20:36)
[2018-01-29] MEDS: Aspirin EC TAB* 81 MG TAB.EC PO SCH (08:18)
[2018-01-29] MEDS: Senna TAB PO SCH (08:18)
[2018-01-29] MEDS: Gabapentin CAP(*) 100 MG PO SCH (08:19)
--- NOTE | 2018-01-29 10:56 | PN ---
Progress Note - Progress Note Date of Service: 01/29/18 SOAP: Subjective: []Had been better on Monday but turned for worse on Monday. More SOB, cannot get comfortable. Has pain on side and some in abd. No fevers. Does not want any more tests, poke or prods. Wants to be comfortable. Acetaminophen (Tylenol Tab*) 650 mg PO Q4H PRN PRN Reason: FEVER/PAIN Albuterol/Ipratropium (Duoneb (Albuterol 2.5 Mg/Ipratropium 0.5 Mg)) 1 neb INH [id number] AWAKE PRN PRN Reason: sob/wheexing Last Admin: 01/28/18 14:48 Dose: 1 neb Aspirin (Aspirin Ec Tab*) 81 mg PO DAILY [facility] Last Admin: 01/29/18 08:18 Dose: 81 mg Dextrose (D50w Syringe 50 Ml*) 12.5 gm IV PUSH .FOR FS < 60 - SS PRN PRN Reason: FS < 60 Gabapentin (Neurontin Cap(*)) 200 mg PO BID [facility] Last Admin: 01/29/18 08:19 Dose: 200 mg Heparin Sodium (Porcine) (Heparin Flush Port (Ivad)) 5 ml FLUSH DAILY [facility]; Protocol PRN Reason: access port Heparin Sodium (Porcine) (Heparin Vial(*)) 5,000 units SUBCUT Q8HR [facility] Last Admin: 01/29/18 05:06 Dose: 5,000 units Sodium Chloride (Ns 0.9% 500 Ml*) 500 mls @ 10 mls/hr IV .KVO (10 ML/HR) [facility] Last Admin: 01/28/18 18:28 Dose: 10 mls/hr Piperacillin Sod/Tazobactam (Sod 3.375 gm/ Sodium Chloride) 100 mls @ 25 mls/ hr IVPB Q8H [facility] Last Admin: 01/29/18 10:04 Dose: 25 mls/hr Insulin Human Lispro (Humalog*) 0 units SUBCUT ACHS [facility]; Protocol Last Admin: 01/29/18 08:00 Dose: Not Given Meclizine HCl (Antivert Tab*) 25 mg PO Q8HR PRN PRN Reason: VERTIGO Last Admin: 01/28/18 18:23 Dose: 25 mg Ondansetron HCl (Zofran Inj*) 4 mg IV Q6H PRN PRN Reason: NAUSEA Last Admin: 01/28/18 18:23 Dose: 4 mg Oxycodone/Acetaminophen (Percocet 5/325 Tab*) 1 tab PO Q4H PRN PRN Reason: Pain Pharmacy Consult (Zosyn Per Pharmacy*) 1 note FOLLOW UP . PRN PRN Reason: PER PROTOCOL Polyethylene Glycol/Electrolytes (Miralax*) 17 gm PO DAILY PRN PRN Reason: CONSTIPATION Prednisone (Deltasone Tab*) 40 mg PO Q3D [facility]; Taper Stop: 02/06/18 08:59 Last Admin: 01/28/18 10:22 Dose: 40 mg Senna (Senokot Tab*) 1 tab PO BID [facility] Last Admin: 01/29/18 08:18 Dose: 1 tab Objective: [] Vital Signs Temp Pulse Resp BP Pulse Ox 99.3 F 86 20 96/56 93 01/29/18 08:18 01/29/18 08:18 01/29/18 10:02 01/29/18 08:18 01/29/18 08:18 Sat 97% on 6 L mask HEENT - OM dry, no lesions decreased BS, clear [id number] + BS , obese +1 PHONG Neuro - oriented and conversational. Cr 2.0 (on Bactrim) Assessment: []77 year old metastatic lung cancer with progression in brain and lungs. She has increased SOB over past 24 hrs as well as urinary retention and increased Cr. No progress since admission and may be worse. Discussed progressive cancer and that her breathing may not get better. Options are to intensify treatment in ICU with high flow or positive pressure ventilation or comfort care. She is clear that she wants comfort care. Meeting today with patient, two daughters and son on the phone. Plan: []1. Stop all medications that are not treating comfort 2. Will place Vee 3. Morphine 2 mg IV q 1 hr prn 4. Family is gathering, her children are aware that on comfort care she may quickly.
[2018-01-29] MEDS ORDERED: Morphine VIAL* 4 MG/ML VIAL (1 ml vial) IV PRN (10:59)
[2018-01-29] MEDS: Morphine VIAL* 4 MG/ML VIAL (1 ml vial) IV PRN ×5 (11:52→21:45)
[2018-01-29] MEDS ORDERED: LORazepam INJ* 2 MG/ML 1 ML VIAL IV PUSH ONE (13:00)
[2018-01-29] MEDS: glyBURIDE TAB* 2.5 MG PO SCH (14:11)
[2018-01-29] MEDS: metFORMIN* 500 MG TAB PO SCH (14:11)
[2018-01-29] MEDS: Atropine 1% (ORAL/SL)* 15 ML BTL SL PRN ×4 (15:43→23:34)
[2018-01-29 19:53] VITALS: BP 94/53
--- NOTE | 2018-02-03 02:44 | DS ---
DISCHARGE SUMMARY/ NOTE: DATE OF ADMISSION: 01/25/18 DATE OF : 01/30/18 PRIMARY ONCOLOGIST AND ATTENDING PHYSICIAN: Dr. Tha Kang.* (DICTATED BY ISIS GÓMEZ) DICTATING PROVIDER: ISIS Gómez PRIMARY DIAGNOSES: 1. Acute respiratory failure secondary to metastatic lung cancer and chronic obstructive pulmonary disease exacerbation. 2. Diabetes. 3. Immune-mediated neuropathy. 4. Diastolic heart failure. HOSPITAL IMAGING: Chest x-ray, 01/25/18, shows a small right pleural effusion. CTA of the chest, 01/25/18, shows no evidence of a PE. Findings consistent with cardiogenic pulmonary edema with patchy ground-glass densities as well as a small right pleural effusion, which appears similar as compared to imaging from 01/13/18. Right lung mass measuring 2.7 cm in the largest diameter. Chest x-ray, 01/28/18, shows patchy atelectasis versus consolidation of the right lower lung and a small right pleural effusion. HOSPITAL COURSE: This is a 77-year-old female with metastatic lung cancer, recently treated with palliative gemcitabine who was hospitalized 01/13/18 through 01/24/18 with what was likely a COPD exacerbation versus volume overload secondary to gemcitabine toxicity. The patient was diuresed and treated with corticosteroids and appropriate inhaled therapies with rapid improvement in her respiratory symptoms. The patient was subsequently discharged home with prednisone at a tapering dose as well as Incruse added to her COPD regimen and appropriate nebulized treatments. Apparently, shortly after returning home, her respiratory symptoms became dramatically worse and she returned to the emergency department in respiratory distress. Oxygen saturation upon reaching the emergency department were in the low 70s. The patient was subsequently placed on supplemental oxygen. Chest x-ray showed a small right pleural effusion, CTA demonstrated no PE, but evidence of pulmonary edema. She was subsequently admitted for further symptom management. The patient's respiratory symptoms began to improve with IV Lasix and increase in her prednisone dosing. Her restaging scans from January when compared to October had showed clear progression in both her lung tumor as well as brain metastases. The patient had what sounded to be perhaps an acute aspiration event early in the morning on 01/29/18. Her respiratory status was significantly worse following this and the patient expressed desire to convert to comfort measures only and did not want to escalate treatment to ICU. The patient was subsequently transitioned to comfort measures only and approximately 12 hours later, overnight, on 01/30/18 with family present. ISIS GÓMEZ [id number] #: [id number] MTDE[place]ott
== END 2018-01-30 00:05 | disposition expired | DRG 194 ==
LOC: ED 14:13 → MEDTELE 19:40
PROVIDERS: ADMIT Internal Medicine Hematology & Oncology; ATTEND Internal Medicine Hematology & Oncology
DX: J16.8 Pneumonia due to other specified infectious organisms (principal); J44.1 Chronic obstructive pulmonary disease with (acute) exacerbation; C79.31 Secondary malignant neoplasm of brain; C34.31 Malignant neoplasm of lower lobe, right bronchus or lung; I11.9 Hypertensive heart disease without heart failure; J40 Bronchitis, not specified as acute or chronic; Z66 Do not resuscitate; I25.10 Atherosclerotic heart disease of native coronary artery without angina pectoris; R06.02 Shortness of breath; E78.5 Hyperlipidemia, unspecified; Z85.820 Personal history of malignant melanoma of skin; Z79.82 Long term (current) use of aspirin; Z79.899 Other long term (current) drug therapy; Z88.8 Allergy status to other drugs, medicaments and biological substances; Z80.1 Family history of malignant neoplasm of trachea, bronchus and lung; Z81.2 Family history of tobacco abuse and dependence; Z87.891 Personal history of nicotine dependence
CPT/HCPCS: 36415; 71045; 71046; 71275; 80053; 82140; 82570; 83605; 83615; 83735; 83880; 84100; 84300; 84484; 84540; 85025; 85027; 87040; 93005; 94640; 99223; 99232; 99233; 99284; A9270-GY; G8978-GP-CI; G8979-GP-CI; J1642; J1644; J1650; J1940; J2060; J2270; J2405; J2543; J7512; Q9967